=== PATIENT | female | born 1955 | race Two or more races ===

== ENCOUNTER 2019-04-05 15:44 | Inpatient (IN) | payer MEDICARE, MEDICAID ==
[~2019-04-05] VITALS: Ht 167.6 cm; Wt 76.9 kg
[2019-04-05 17:39] VITALS: BP 153/75
[2019-04-05] MEDS ORDERED: CHLO15MO2 PO (18:47)
[2019-04-05] MEDS ORDERED: POLY17PO5 PO (18:47)
[2019-04-05] MEDS ORDERED: LEVO100T5 PO (18:47)
[2019-04-05] MEDS ORDERED: FENO145T30 PO (18:47)
[2019-04-05] MEDS ORDERED: ACET500T68 PO (18:47)
[2019-04-05] MEDS ORDERED: OMEG-33 PO (18:47)
[2019-04-05] MEDS ORDERED: MULT1TAB57 PO (18:47)
[2019-04-05] MEDS ORDERED: BENZ0.5T32 PO (18:47)
[2019-04-05] MEDS ORDERED: CETI10TA16 PO (18:47)
[2019-04-05] MEDS ORDERED: RANI150T2 PO (18:47)
[2019-04-05] MEDS ORDERED: ASPI-630 PO (18:47)
[2019-04-05] MEDS ORDERED: METHYL SALICYLATE/MENTHOL TOPICAL OINTMENT 57GM TUBE. TP PRN (20:45)
[2019-04-05] MEDS ORDERED: MAGNESIUM HYDROXIDE 2,400 MG/30 ML ORAL.SUSP. PO PRN (20:45)
[2019-04-05] MEDS ORDERED: ACETAMINOPHEN 325 MG TABLET PO PRN (20:45)
[2019-04-05] MEDS ORDERED: MAG HYDROX/AL HYDROX/SIMETH 30 ML ORAL.SUSP PO PRN (20:45)
[2019-04-05] MEDS: LORazepam 1 MG TABLET PO SCH (21:13)
[2019-04-05] MEDS: GABAPENTIN 300 MG CAPSULE. PO SCH (21:13)
[2019-04-05] MEDS: HALOPERIDOL 5 MG TABLET PO SCH (21:13)
--- NOTE | 2019-04-05 22:01 | PDOC ---
Exam Note: Zac Note: Please also refer to the separate dictated note~for this date of service dictated separately. Discussed the patient with Nursing staff reviewed the chart.~Reviewed interim history and current functioning. Reviewed vital signs,~Labs/ Radiology~and current medications noted below. Continue current treatment with the changes noted in the dictated addendum note Assessment: Vital Signs/I&O: Vital Signs Date Time Temp Pulse Resp B/P (MAP) Pulse Ox O2 Delivery O2 Flow Rate FiO2 04/05/19 17:39 96.7 53 20 153/75 (101) 95 Current Medications: Meds: Current Medications Medications (Trade) Dose Ordered Sig/Rom Route PRN Reason Start Time Stop Time Status Last Admin Dose Admin Lorazepam (Ativan) 1 mg BID PO 04/05/19 20:00 04/05/19 21:13 Gabapentin (Neurontin) 300 mg BID PO 04/05/19 20:00 04/05/19 21:13 Haloperidol (Haldol) 5 mg BID PO 04/05/19 20:00 04/05/19 21:13 I have reviewed the current psychotropics carefully including drug interactions. Risk benefit ratio favors no change other than as noted in my dictated progress note. STACY BUNDY MD Apr 05, 2019 22:01
[2019-04-05] MEDS ORDERED: HALO2TAB PO (22:54)
[2019-04-05] MEDS ORDERED: NYST15PO9 TP (22:58)
[2019-04-06 05:44] VITALS: BP 103/66
[2019-04-06] MEDS: LEVOTHYROXINE 100 MCG TABLET PO SCH (06:10)
[2019-04-06] MEDS: FAMOTIDINE 20 MG TABLET PO SCH (06:11)
[2019-04-06 07:26] LABS: ALBUMIN 3.5 g/dL (3.4-5.0); ALBUMIN/GLOBULIN RATIO 1.1 (1.0-1.7); CALCIUM 9.7 mg/dL (8.5-10.1); GFR 56.2; POTASSIUM 3.8 mmol/L (3.5-5.1); TOTAL BILIRUBIN 0.5 mg/dL (0.2-1.0); TOTAL PROTEIN 6.8 g/dL (6.4-8.2)
[2019-04-06 07:31] LABS: BASO % 0 % (0-3); EOS % 0 % (0-3); HEMATOCRIT 37.6 % (36.0-47.0); HEMOGLOBIN 12.6 g/dL (12.0-15.5); LYMPH # 1.7 x10^3/uL (1.0-4.8); LYMPH % 22 % (24-48); MEAN CORPUSCULAR HEMOGLOBIN 33 pg (25-35); MEAN CORPUSCULAR HGB CONC 33 g/dL (31-37); MEAN CORPUSCULAR VOLUME 99 fL (79-100); MONO # 0.8 x10^3/uL (0.0-1.1); MONO % 11 % (0-9); NEUT % 67 % (31-73); PLATELET COUNT 336 x10^3/uL (140-400); RED BLOOD COUNT 3.81 x10^6/uL (3.50-5.40); RED CELL DISTRIBUTION WIDTH 13.8 % (11.5-14.5); WHITE BLOOD COUNT 7.5 x10^3/uL (4.0-11.0)
[2019-04-06] MEDS: POLYETHYLENE GLYCOL 3350 17 GM PACKET. PO SCH (08:27)
[2019-04-06] MEDS: FENOFIBRATE NANOCRYSTALLIZED 145 MG TABLET PO SCH (08:28)
[2019-04-06] MEDS: CETIRIZINE HCL 10 MG TABLET PO SCH (08:28)
[2019-04-06] MEDS: MULTIVITAMIN with MINERAL TABLET. PO SCH (08:28)
[2019-04-06] MEDS: LORazepam 1 MG TABLET PO SCH ×2 (08:28→20:23)
[2019-04-06] MEDS: BENZTROPINE MESYLATE 0.5 MG TABLET PO SCH ×2 (08:28→20:23)
[2019-04-06] MEDS: CHLORHEXIDINE 0.12% 15 ML MOUTHWASH. SWSP SCH ×3 (08:28→21:06)
[2019-04-06] MEDS: OMEGA-3 FATTY ACIDS/FISH OIL 1,000 MG CAPSULE. PO SCH (08:28)
[2019-04-06] MEDS: GABAPENTIN 300 MG CAPSULE. PO SCH ×2 (08:29→20:23)
[2019-04-06] MEDS: ASPIRIN 81 MG TAB.CHEW PO SCH (08:31)
[2019-04-06] MEDS: HALOPERIDOL 5 MG TABLET PO SCH ×2 (08:42→20:23)
--- NOTE | 2019-04-06 10:12 | HP ---
ADMIT DATE: 04/05/2019 ADMISSION HISTORY/EVALUATION This late entry 04/05/2019 covers elements not covered in my initial note 04/05/2019. The patient was seen individually evening of 04/05/2019. Discussed with nursing staff, reviewed the chart. Also discussed with Sandy Cuevas graphics coordinator earlier in the day after we got a referral from the [facility] where the patient had been for some time. She was referred there from her nursing facility, which is an independent supported living facility and brought that on the consent of her public childcare center administrator guardian, Francisco Parada on account of marked insomnia, significant mood lability, screaming, tearing up the carpet, falling into the jackson, slamming doors, hitting herself, throwing items at others. All of this had been worsening for about 2 months. She was running out into the street, pulling out her hair and has had a significant physical decline. She has failed outpatient psychiatric interventions for her psychotic disorder, questionable schizophrenia, mental retardation, Alzheimer dementia with delusion, depression. Behaviors have been deemed dangerous, unmanageable at the facility, independent living and referred to the ER and then to us for inpatient psychiatric stabilization. CHIEF COMPLAINT: "No." HISTORY OF PRESENT ILLNESS: The patient has a history of moderate MR, but recent onset of Alzheimer's dementia, has been noted above. She has been increasingly paranoid, angry, irritable, labile in her mood, depressed, unmanageable, aggressive, and disruptive. She has had sleep and appetite changes. No clear history of bipolar disorder, suicidal or homicidal ideation except running out into the streets, pulling her hair and other behaviors have been quite dangerous, unmanageable. PAST PSYCHIATRIC HISTORY: As above. She has failed outpatient psychiatric interventions at [facility]. MEDICAL HISTORY: Positive for moderate MR, hypothyroidism. ACCU-CHEKS: Nil. CODE STATUS: Full code. DIET: Regular. Takes medications whole, ambulates in wheelchair with 1 person assist. CURRENT PSYCHOTROPICS: Ativan 1 mg b.i.d., Neurontin 300 mg b.i.d., Haldol 5 mg b.i.d., Cogentin 0.5 mg b.i.d., Haldol 2 mg q.i.d. p.r.n. psychosis, agitation. FAMILY HISTORY: Noncontributory. SOCIAL HISTORY: Public childcare center administrator, Francisco Parada is her guardian. No alcohol or drug abuse, physical, sexual or elder abuse history is noted. She is not known to be a perpetrator. REACTION TO HOSPITALIZATION: The patient oblivious of this. ASSETS: Supportive living at the above facility and support from the public childcare center administrator. MENTAL STATUS EXAMINATION: The patient was seen individually evening of 04/05/2019 shortly after she arrived on the unit. She is oriented to herself. Speech is often responses monosyllabic. Insight, judgment, recent and remote memory, attention, concentration, fund of knowledge poor, consistent with her diagnoses. IMPRESSION: Major neurocognitive disorder, possibly Alzheimer's with delusion, depression, behavioral disturbance, intellectual disability, moderate. Impulse control disorder; anxiety disorder, unspecified; psychotic disorder, unspecified. Rest unchanged from above. PLAN: Admit to geropsychiatry unit at [facility]. I will see the patient daily individually from a psychiatric standpoint. Medical followup with Dr. Berman. We will continue the patient on her current psychotropics. Observe baseline, then adjust as clinically indicated. MAN Phil BUNDY MD DR: MARGARITO/carolyn JOB#: [id number] / [id number]
[2019-04-06 12:14] LABS: AMORPHOUS SEDIMENT,UR PRESENT /HPF; BACTERIA,URINE 0 /HPF (0-FEW); BILIRUBIN,URINE NEG (NEG); CLARITY,URINE HAZY; COLOR,URINE YELLOW; GLUCOSE,URINE NEG (NEG); NITRITE,URINE NEG (NEG); RBC,URINE 0 /HPF (0-2); SQUAMOUS EPITHELIAL CELL,UR OCC /LPF; UROBILINOGEN,URINE 0.2 mg/dL (0.2 mg/dL); WBC,URINE RARE /HPF (0-4)
[2019-04-06 12:15] LABS: HYALINE CASTS, URINE OCC /HPF
[2019-04-06 15:54] VITALS: BP 150/64
[2019-04-06 16:16] LABS: THYROID STIM HORMONE (TSH) 1.98 uIU/mL (0.358-3.740)
--- NOTE | 2019-04-06 17:12 | RAD ---
CT HEAD WO CONTRAST Indication: Change in mental status Exposure: One or more of the following individualized dose reduction techniques were utilized for this examination: 1. Automated exposure control 2. Adjustment of the mA and/or kV according to patient size 3. Use of iterative reconstruction technique. Technique: Standard imaging without intravenous contrast. Comparison: None Findings: No acute intracranial hemorrhage, mass effect, midline shift or abnormal extra-axial fluid collection. Mild prominence of ventricles and sulci compatible with mild atrophy. Mild low-density in the white matter bilaterally, a nonspecific finding, but which is commonly due to chronic small vessel ischemic disease in a patient of this age. The orbits appear unremarkable. No significant scalp swelling. Visualized sinuses are clear. No evidence of acute skull abnormality. IMPRESSION: No evidence of acute intracranial hemorrhage. Electronically signed by: Bayron Pacheco MD (04/06/2019 5:08 PM) [facility]
[2019-04-06] MEDS: DIVALPROEX ER 500 MG TAB.ER.24H PO SCH (20:23)
--- NOTE | 2019-04-06 22:07 | PDOC ---
Exam Note: Zac Note: Please also refer to the separate dictated note~for this date of service dictated separately.~Patient seen individually. Discussed the patient with Nursing staff reviewed the chart.~Reviewed interim history and current functioning. Reviewed vital signs,~Labs/ Radiology~and current medications noted below. Continue current treatment with the changes noted in the dictated addendum note Assessment: Vital Signs/I&O: Vital Signs Date Time Temp Pulse Resp B/P (MAP) Pulse Ox O2 Delivery O2 Flow Rate FiO2 04/06/19 15:54 97.4 77 18 150/64 (92) 98 I & O 04/05/19 04/05/19 04/06/19 15:00 23:00 07:00 Intake Total 480 ml Balance 480 ml Labs: Laboratory Tests Test 04/06/19 06:26 04/06/19 11:30 White Blood Count 7.5 x10^3/uL (4.0-11.0) Red Blood Count 3.81 x10^6/uL (3.50-5.40) Hemoglobin 12.6 g/dL (12.0-15.5) Hematocrit 37.6 % (36.0-47.0) Mean Corpuscular Volume 99 fL (79-100) Mean Corpuscular Hemoglobin 33 pg (25-35) Mean Corpuscular Hemoglobin Concent 33 g/dL (31-37) Red Cell Distribution Width 13.8 % (11.5-14.5) Platelet Count 336 x10^3/uL (140-400) Neutrophils (%) (Auto) 67 % (31-73) Lymphocytes (%) (Auto) 22 % (24-48) L Monocytes (%) (Auto) 11 % (0-9) H Eosinophils (%) (Auto) 0 % (0-3) Basophils (%) (Auto) 0 % (0-3) Neutrophils # (Auto) 5.0 x10^3uL (1.8-7.7) Lymphocytes # (Auto) 1.7 x10^3/uL (1.0-4.8) Monocytes # (Auto) 0.8 x10^3/uL (0.0-1.1) Eosinophils # (Auto) 0.0 x10^3/uL (0.0-0.7) Basophils # (Auto) 0.0 x10^3/uL (0.0-0.2) Sodium Level 141 mmol/L (136-145) Potassium Level 3.8 mmol/L (3.5-5.1) Chloride Level 104 mmol/L (98-107) Carbon Dioxide Level 27 mmol/L (21-32) Anion Gap 10 (6-14) Blood Urea Nitrogen 21 mg/dL (7-20) H Creatinine 1.0 mg/dL (0.6-1.0) Estimated GFR (Cockcroft-Gault) 56.2 BUN/Creatinine Ratio 21 (6-20) H Glucose Level 107 mg/dL (70-99) H Calcium Level 9.7 mg/dL (8.5-10.1) Magnesium Level 2.0 mg/dL (1.8-2.4) Iron Level 54 ug/dL (50-170) Total Iron Binding Capacity 408 ug/dL (250-450) Iron Saturation 13 % (15-34) L Total Bilirubin 0.5 mg/dL (0.2-1.0) Aspartate Amino Transferase (AST) 41 U/L (15-37) H Alanine Aminotransferase (ALT) 35 U/L (14-59) Alkaline Phosphatase 101 U/L (46-116) Total Protein 6.8 g/dL (6.4-8.2) Albumin 3.5 g/dL (3.4-5.0) Albumin/Globulin Ratio 1.1 (1.0-1.7) Triglycerides Level 72 mg/dL (0-150) Cholesterol Level 188 mg/dL (0-200) LDL Cholesterol, Calculated 78 mg/dL (0-100) VLDL Cholesterol, Calculated 14 mg/dL (0-40) Non-HDL Cholesterol Calculated 92 mg/dL (0-129) HDL Cholesterol 96 mg/dL (40-60) H Cholesterol/HDL Ratio 1.0 25-Hydroxy Vitamin D Total 28.8 ng/mL (30-100) L Thyroid Stimulating Hormone (TSH) 1.980 uIU/mL (0.358-3.740) Thyroxine (T4) 8.0 ug/dL (4.5-12.0) Total Triiodothyronine (TT3) 87 ng/dL (71-180) Treponema pallidum Antibody Nonreactive (Nonreactive) Urine Collection Type Unknown Urine Color Yellow Urine Clarity Hazy Urine pH 5.5 Urine Specific Greene 1.020 Urine Protein Neg (NEG-TRACE) Urine Glucose (UA) Neg mg/dL (NEG) Urine Ketones (Stick) Neg mg/dL (NEG) Urine Blood Neg (NEG) Urine Nitrite Neg (NEG) Urine Bilirubin Neg (NEG) Urine Urobilinogen Dipstick 0.2 mg/dL (0.2 mg/dL) Urine Leukocyte Esterase Neg (NEG) Urine RBC 0 /HPF (0-2) Urine WBC Rare /HPF (0-4) Urine Squamous Epithelial Cells Occ /LPF Urine Amorphous Sediment Present /HPF Urine Bacteria 0 /HPF (0-FEW) Urine Hyaline Casts Occ /HPF Urine Mucus Mod /LPF Current Medications: Meds: Current Medications Medications (Trade) Dose Ordered Sig/Rom Route PRN Reason Start Time Stop Time Status Last Admin Dose Admin Aspirin (Children'S Aspirin) 81 mg DAILY PO 04/06/19 09:00 04/06/19 08:32 Cetirizine HCl (ZyrTEC) 10 mg DAILY PO 04/06/19 09:00 04/06/19 08:32 Fenofibrate (Tricor) 145 mg DAILY PO 04/06/19 09:00 04/06/19 08:32 Polyethylene Glycol (miraLAX) 17 gm DAILY PO 04/06/19 09:00 04/06/19 08:32 Multivitamins/ Calcium (Thera-M Plus) 1 tab DAILY PO 04/06/19 09:00 04/06/19 08:32 Fish Oil (Fish Oil) 1,000 mg DAILY PO 04/06/19 09:00 04/06/19 08:32 Chlorhexidine Gluconate (Peridex) 15 ml TID SWS 04/06/19 09:00 04/06/19 21:06 Benztropine Mesylate (Cogentin) 0.5 mg BID PO 04/06/19 09:00 04/06/19 20:23 Levothyroxine Sodium (Synthroid) 100 mcg DAILY06 PO 04/06/19 06:00 04/06/19 06:11 Famotidine (Pepcid) 20 mg DAILY07 PO 04/06/19 07:00 04/06/19 06:11 Divalproex Sodium (Depakote Er) 500 mg QHS PO 04/06/19 21:00 04/06/19 20:23 I have reviewed the current psychotropics carefully including drug interactions. Risk benefit ratio favors no change other than as noted in my dictated progress note. Diagnosis: Problems: (1) Impulse control disorder (2) Anxiety disorder (3) Psychotic disorder (4) Dementia in Alzheimer's disease with delusions (5) Dementia in Alzheimer's disease with depression (6) Major neurocognitive disorder STACY BUNDY MD Apr 06, 2019 22:07
[2019-04-06 23:07] LABS: HEMOGLOBIN A1C 5.2 % (4.8-5.6)
[2019-04-07] MEDS: HALOPERIDOL 2 MG TABLET PO PRN (00:32)
[2019-04-07] MEDS: LEVOTHYROXINE 100 MCG TABLET PO SCH (05:56)
[2019-04-07] MEDS: FAMOTIDINE 20 MG TABLET PO SCH (05:56)
[2019-04-07 06:06] VITALS: BP 112/60
[2019-04-07] MEDS: OMEGA-3 FATTY ACIDS/FISH OIL 1,000 MG CAPSULE. PO SCH (08:47)
[2019-04-07] MEDS: FENOFIBRATE NANOCRYSTALLIZED 145 MG TABLET PO SCH (08:48)
[2019-04-07] MEDS: BENZTROPINE MESYLATE 0.5 MG TABLET PO SCH ×2 (08:48→21:16)
[2019-04-07] MEDS: MULTIVITAMIN with MINERAL TABLET. PO SCH (08:48)
[2019-04-07] MEDS: CETIRIZINE HCL 10 MG TABLET PO SCH (08:48)
[2019-04-07] MEDS: POLYETHYLENE GLYCOL 3350 17 GM PACKET. PO SCH (08:48)
[2019-04-07] MEDS: CHLORHEXIDINE 0.12% 15 ML MOUTHWASH. SWSP SCH ×3 (08:48→21:16)
[2019-04-07] MEDS: ASPIRIN 81 MG TAB.CHEW PO SCH (08:48)
[2019-04-07] MEDS: HALOPERIDOL 5 MG TABLET PO SCH ×2 (08:48→21:16)
[2019-04-07] MEDS: LORazepam 1 MG TABLET PO SCH ×2 (08:50→21:16)
[2019-04-07] MEDS: GABAPENTIN 300 MG CAPSULE. PO SCH ×2 (08:50→21:16)
--- NOTE | 2019-04-07 08:53 | CONS ---
DATE OF CONSULTATION: 04/06/2019 REASON FOR CONSULTATION: Medical management. HISTORY OF PRESENT ILLNESS: The patient is a 63-year-old female patient who was referred from [facility], where the patient had been for some time. She was referred there from her nursing facility, which is an independent supported living facility and brought that on the consent of her public health data administrator guardian on account of marked insomnia and significant mood lability, screaming, tearing up the carpet, falling into the jackson, slamming doors, hitting herself, throwing items at others, all this had been worsening for about 2 months. She was running out into the street, pulling out her hair, has had a significant physical decline. She had failed outpatient psychiatric intervention for her psychotic disorder with questionable schizophrenia, mental retardation, Alzheimer dementia with delusion, depression. Her behaviors have been deemed dangerous, unmanageable at the facility, independent living and referred to inpatient psychiatric stabilization. PAST PSYCHIATRIC HISTORY: Significant for moderate mental retardation, recent onset Alzheimer dementia. She has been increasingly paranoid, angry, irritable, labile in her mood, depressed, unmanageable, aggressive and disruptive. PAST MEDICAL HISTORY: Significant for moderate mental retardation, hypothyroidism as well as gastroesophageal reflux disease, and hyperlipidemia. ALLERGIES: She is allergic to CIPROFLOXACIN AND METRONIDAZOLE. MEDICATIONS: She is currently on following medications: She is on cetirizine 10 mg once a day, fenofibrate noncrystalized 145 mg once a day, omega-3 fatty acid 1000 mg 3 times a day, aspirin 81 mg once a day, acetaminophen 1000 mg every 8 hours, haloperidol 2 mg 4 times a day, benztropine mesylate 0.5 mg twice a day, chlorhexidine gluconate or Peridex 15 mL p.o. t.i.d., polyethylene glycol 17 grams daily p.r.n. for constipation, ranitidine 150 mg once a day, levothyroxine sodium 100 mcg once a day, nystatin powder applied topically twice a day, multivitamin with mineral 1 tablet once a day. FAMILY HISTORY: Noncontributory. SOCIAL HISTORY: She is a resident at an Assisted Living Facility. Her public health data administrator is her guardian. She does not smoke, drink alcohol or use any recreational drugs. PHYSICAL EXAMINATION: GENERAL: On examining her, she was sitting comfortably in her chair, eating her supper, in no apparent distress. No pallor, jaundice, cyanosis or thyromegaly. No jugular venous distention. No lower limb edema. VITAL SIGNS: Her heart rate was 77, blood pressure 150/64, temperature was 97.4, respiratory rate was 18 and oxygen saturation was 98%. HEAD, EYES, EARS, NOSE, AND THROAT: Showed normocephalic, atraumatic. NECK: Supple. HEART: Showed normal first and second heart sounds. No gallop, rub or murmur. CHEST: Clear to auscultation. No crepitation or rhonchi. ABDOMEN: Distended, soft, nontender. NEUROLOGIC: She is awake, alert, responding appropriately. All cranial nerves intact. EXTREMITIES: She moves upper extremities without difficulty. SKIN: Examination of the skin showed she had multiple bruises on the right shoulder and left forearm that were present on admission. LABORATORY DATA: Her lab work showed her white cell count was 7500, hemoglobin 12.6, hematocrit 37.6, MCV 99 and platelet count 336,000 with normal manual differential. Her chemistry showed a serum sodium 141, potassium 3.8, chloride 104, bicarbonate 27, anion gap of 10, BUN 21, creatinine 1, estimated GFR was 56 mL per minute. Her glucose 107, calcium was 9.7, magnesium 2. Serum iron 54, TIBC was 408 and iron saturation was 13%. Her total bilirubin, AST, ALT, alkaline phosphatase were normal. Total protein was 6.8, albumin 3.5. Serum triglycerides were 72, total cholesterol 188, the LDL cholesterol 78, VLDL was 14, HDL cholesterol was 96, and the ratio was 1. Her TSH was normal at 1.980. Her urinalysis showed the urine was yellow, hazy with a pH of 5.5, specific gravity of 1.020. The urine was negative for protein, glucose, ketones, blood, nitrite and leukocyte esterase. There are no rbc's, no wbc's. IMAGING DATA: CT scan of the head showed that there is no intracranial hemorrhage, mass effect, midline shift or abnormal extraaxial fluid collection. Mild prominence of ventricles and sulci compatible with mild atrophy, mild low density in the white matter bilaterally, a nonspecific finding, but which is commonly due to chronic small vessel ischemic disease in a patient at this age. The orbits appear unremarkable. No significant scalp swelling. Visualized sinuses are clear. No evidence of acute skull abnormality. ASSESSMENT AND PLAN: All in all, this is a 63-year-old female patient with mild mental retardation. Medically, she seemed to be stable. All her vital signs are within acceptable range. All her lab works including her TSH, kidney function and blood count are all within acceptable range. I will follow all her lab works that are still pending at the time of this dictation and make any necessary recommendation. Thank you, Dr. Schofield for allowing me to participate in the care of this patient. PAIGE RANDHAWA MD DR: ALEX/carolyn JOB#: [id number] / [id number]
[2019-04-07 16:51] VITALS: BP 144/80
[2019-04-07] MEDS ORDERED: FLU VAX QS 2019-20 (36MOS+)/PF 0.5 ML SYRINGE. VAX IM ONE (20:00)
[2019-04-07] MEDS: DIVALPROEX ER 500 MG TAB.ER.24H PO SCH (21:16)
[2019-04-07] MEDS: MIRTAZAPINE 7.5 MG TABLET. PO SCH (21:17)
--- NOTE | 2019-04-07 21:44 | PDOC ---
Exam Note: Zac Note: Please also refer to the separate dictated note~for this date of service dictated separately.~Patient seen individually. Discussed the patient with Nursing staff reviewed the chart.~Reviewed interim history and current functioning. Reviewed vital signs,~Labs/ Radiology~and current medications noted below. Continue current treatment with the changes noted in the dictated addendum note Assessment: Vital Signs/I&O: Vital Signs Date Time Temp Pulse Resp B/P (MAP) Pulse Ox O2 Delivery O2 Flow Rate FiO2 04/07/19 16:51 97.0 83 18 144/80 (101) 95 I & O 04/06/19 04/06/19 04/07/19 14:59 22:59 06:59 Intake Total 600 ml 240 ml 120 ml Balance 600 ml 240 ml 120 ml Current Medications: Meds: Current Medications Medications (Trade) Dose Ordered Sig/Rom Route PRN Reason Start Time Stop Time Status Last Admin Dose Admin Haloperidol (Haldol) 2 mg PRN QID PRN PO HALLUCINATIONS 04/07/19 00:15 04/07/19 00:32 Mirtazapine (Remeron) 7.5 mg QHS PO 04/07/19 21:00 04/07/19 21:17 I have reviewed the current psychotropics carefully including drug interactions. Risk benefit ratio favors no change other than as noted in my dictated progress note. Diagnosis: Problems: (1) Anxiety disorder (2) Impulse control disorder (3) Psychotic disorder (4) Dementia in Alzheimer's disease with depression (5) Dementia in Alzheimer's disease with delusions (6) Major neurocognitive disorder STACY BUNDY MD Apr 07, 2019 21:44
[2019-04-08] MEDS: LEVOTHYROXINE 100 MCG TABLET PO SCH (05:24)
[2019-04-08 06:02] VITALS: BP 109/69
[2019-04-08] MEDS: FAMOTIDINE 20 MG TABLET PO SCH (06:13)
[2019-04-08] MEDS: CETIRIZINE HCL 10 MG TABLET PO SCH (07:47)
[2019-04-08] MEDS: FENOFIBRATE NANOCRYSTALLIZED 145 MG TABLET PO SCH (07:47)
[2019-04-08] MEDS: BENZTROPINE MESYLATE 0.5 MG TABLET PO SCH ×2 (07:47→19:36)
[2019-04-08] MEDS: OMEGA-3 FATTY ACIDS/FISH OIL 1,000 MG CAPSULE. PO SCH (07:47)
[2019-04-08] MEDS: MULTIVITAMIN with MINERAL TABLET. PO SCH (07:47)
[2019-04-08] MEDS: CHLORHEXIDINE 0.12% 15 ML MOUTHWASH. SWSP SCH ×3 (07:48→19:37)
[2019-04-08] MEDS: HALOPERIDOL 5 MG TABLET PO SCH (07:48)
[2019-04-08] MEDS: ASPIRIN 81 MG TAB.CHEW PO SCH (07:48)
[2019-04-08] MEDS: POLYETHYLENE GLYCOL 3350 17 GM PACKET. PO SCH (07:48)
[2019-04-08] MEDS: GABAPENTIN 300 MG CAPSULE. PO SCH ×2 (07:50→19:37)
[2019-04-08] MEDS: LORazepam 1 MG TABLET PO SCH ×2 (07:50→19:37)
[2019-04-08] MEDS: HALOPERIDOL 2 MG TABLET PO PRN ×2 (09:14→13:25)
[2019-04-08] MEDS: ACETAMINOPHEN 500 MG TABLET PO PRN (13:25)
[2019-04-08 17:12] VITALS: BP 112/71
[2019-04-08] MEDS: MIRTAZAPINE 7.5 MG TABLET. PO SCH (19:36)
[2019-04-08] MEDS: DIVALPROEX ER 500 MG TAB.ER.24H PO SCH (19:37)
[2019-04-08] MEDS: risperiDONE 0.5 MG TABLET. PO SCH (19:39)
--- NOTE | 2019-04-08 22:05 | PDOC ---
Exam Note: Zac Note: Please also refer to the separate dictated note~for this date of service dictated separately.~Patient seen individually. Discussed the patient with Nursing staff reviewed the chart.~Reviewed interim history and current functioning. Reviewed vital signs,~Labs/ Radiology~and current medications noted below. Continue current treatment with the changes noted in the dictated addendum note Assessment: Vital Signs/I&O: Vital Signs Date Time Temp Pulse Resp B/P (MAP) Pulse Ox O2 Delivery O2 Flow Rate FiO2 04/08/19 17:12 99.0 87 16 112/71 (85) 97 I & O 04/07/19 04/07/19 04/08/19 15:00 23:00 07:00 Intake Total 840 ml 240 ml 120 ml Balance 840 ml 240 ml 120 ml Current Medications: Meds: Current Medications Medications (Trade) Dose Ordered Sig/Rom Route PRN Reason Start Time Stop Time Status Last Admin Dose Admin Risperidone (RisperDAL) 0.5 mg BID PO 04/08/19 21:00 04/08/19 19:39 I have reviewed the current psychotropics carefully including drug interactions. Risk benefit ratio favors no change other than as noted in my dictated progress note. Diagnosis: Problems: (1) Anxiety disorder (2) Impulse control disorder (3) Psychotic disorder (4) Dementia in Alzheimer's disease with depression (5) Dementia in Alzheimer's disease with delusions (6) Major neurocognitive disorder STACY BUNDY MD Apr 08, 2019 22:05
[2019-04-09] MEDS: LEVOTHYROXINE 100 MCG TABLET PO SCH (05:46)
[2019-04-09] MEDS: FAMOTIDINE 20 MG TABLET PO SCH (05:46)
[2019-04-09 05:47] VITALS: BP 100/60
[2019-04-09] MEDS: CHLORHEXIDINE 0.12% 15 ML MOUTHWASH. SWSP SCH ×3 (08:48→19:39)
[2019-04-09] MEDS: ASPIRIN 81 MG TAB.CHEW PO SCH (08:48)
[2019-04-09] MEDS: POLYETHYLENE GLYCOL 3350 17 GM PACKET. PO SCH (08:48)
[2019-04-09] MEDS: OMEGA-3 FATTY ACIDS/FISH OIL 1,000 MG CAPSULE. PO SCH (08:48)
[2019-04-09] MEDS: FENOFIBRATE NANOCRYSTALLIZED 145 MG TABLET PO SCH (08:48)
[2019-04-09] MEDS: MULTIVITAMIN with MINERAL TABLET. PO SCH (08:48)
[2019-04-09] MEDS: risperiDONE 0.5 MG TABLET. PO SCH ×2 (08:48→19:38)
[2019-04-09] MEDS: CETIRIZINE HCL 10 MG TABLET PO SCH (08:49)
[2019-04-09] MEDS: BENZTROPINE MESYLATE 0.5 MG TABLET PO SCH ×2 (08:49→19:38)
[2019-04-09] MEDS: GABAPENTIN 300 MG CAPSULE. PO SCH ×2 (08:49→19:38)
[2019-04-09] MEDS: LORazepam 1 MG TABLET PO SCH ×2 (08:50→19:38)
[2019-04-09 09:59] LABS: BASO % 0 % (0-3); EOS % 0 % (0-3); HEMATOCRIT 36.1 % (36.0-47.0); HEMOGLOBIN 11.8 g/dL (12.0-15.5); LYMPH # 0.7 x10^3/uL (1.0-4.8); LYMPH % 11 % (24-48); MEAN CORPUSCULAR HEMOGLOBIN 33 pg (25-35); MEAN CORPUSCULAR HGB CONC 33 g/dL (31-37); MEAN CORPUSCULAR VOLUME 100 fL (79-100); MONO # 0.6 x10^3/uL (0.0-1.1); MONO % 9 % (0-9); NEUT # 5.4 x10^3uL (1.8-7.7); NEUT % 81 % (31-73); PLATELET COUNT 311 x10^3/uL (140-400); RED BLOOD COUNT 3.61 x10^6/uL (3.50-5.40); RED CELL DISTRIBUTION WIDTH 14.3 % (11.5-14.5); WHITE BLOOD COUNT 6.6 x10^3/uL (4.0-11.0)
--- NOTE | 2019-04-09 10:12 | PN ---
DATE: 04/06/2019 PSYCHIATRIC PROGRESS NOTE This late entry 04/06/2019 covers elements not covered in my initial note. SUBJECTIVE: I met with the patient evening of 04/06/2019 staffed at a treatment team meeting with the entire team earlier in the day. Reviewed her history at length. She was walking out of the facility, trying to get into cars, disorganized, anxious, restless, confused and psychotic. Behaviors have been worsening for about 5 months, was very calm, compliant prior to that. She retired from her job working in [employer] and this happened last year and behaviors have gradually worsened. Sleeping 7-8 hours. Appetite 50-75%. She is anxious. Previous evening, she flipped her tray, agitated, aggressive, paranoid, had to be in the quiet hallway on the west side. REVIEW OF SYSTEMS: Ambulation impaired, in wheelchair. No CV, , pulmonary, eye, ENT system symptoms on review. Reliability poor. MENTAL STATUS EXAM: Oriented to herself. Insight, judgment, recent and remote memory, attention, concentration, fund of knowledge poor, consistent with her diagnosis mentioned in my initial note. PLAN: No change from initial note, but given the marked impulse control, behavioral dyscontrol, we will start Depakote ER 500 mg at bedtime. Check CBC, CMP, valproic acid level in [address] head if not done previously. Rest unchanged. MAN Phil BUNDY MD DR: MARGARITO/carolyn JOB#: [id number] / [id number]
[2019-04-09 10:18] LABS: ALBUMIN 3.2 g/dL (3.4-5.0); ALBUMIN/GLOBULIN RATIO 0.9 (1.0-1.7); ALK PHOS 111 U/L (46-116); ALT (SGPT) 30 U/L (14-59); ANION GAP 7 (6-14); AST (SGOT) 35 U/L (15-37); BLOOD UREA NITROGEN 27 mg/dL (7-20); BUN/CREATININE RATIO 25 (6-20); CALCIUM 9.3 mg/dL (8.5-10.1); CARBON DIOXIDE 30 mmol/L (21-32); CHLORIDE 105 mmol/L (98-107); CREATININE 1.1 mg/dL (0.6-1.0); GFR 50.3; GLUCOSE 108 mg/dL (70-99); POTASSIUM 4.1 mmol/L (3.5-5.1); SODIUM 142 mmol/L (136-145); TOTAL BILIRUBIN 0.3 mg/dL (0.2-1.0); TOTAL PROTEIN 6.7 g/dL (6.4-8.2)
[2019-04-09 10:19] LABS: VAL ACID 36 mcg/mL (50-100)
[2019-04-09] MEDS: MUPIROCIN 2% TOPICAL OINTMENT 22GM TUBE. TP SCH (14:29)
[2019-04-09 16:00] VITALS: BP 126/79
[2019-04-09 16:01] VITALS: BP 126/79
[2019-04-09] MEDS: DIVALPROEX ER 500 MG TAB.ER.24H PO SCH (19:38)
[2019-04-09] MEDS: MIRTAZAPINE 7.5 MG TABLET. PO SCH (19:38)
--- NOTE | 2019-04-09 19:56 | PN ---
DATE: 04/07/2019 PSYCHIATRIC PROGRESS NOTE This late entry of 04/07/2019 covers elements not covered in my initial note. SUBJECTIVE: I met with the patient in the evening. The patient slept 5 hours previous night. Overall, she had a good day per nursing report. States she wants to go home, but quite confused, consistent with her diagnosis. REVIEW OF SYSTEMS: Ambulation impaired, in wheelchair. No CV, , pulmonary, eye, ENT system symptoms on review. MENTAL STATUS EXAM: Oriented to herself. Insight, judgment, recent and remote memory, attention, concentration, fund of knowledge poor, consistent with her diagnosis mentioned in my initial note. PLAN: No change from initial note. Maintain scheduled Haldol p.r.n., Haldol, Cogentin, and Depakote. Follow labs level on the Depakote. May need to taper the Ativan, which she is taking 1 mg b.i.d. and Neurontin is 300 mg b.i.d. STACY BUNDY MD DR: MARGARITO/carolyn JOB#: [id number] / [id number]
--- NOTE | 2019-04-09 23:06 | PDOC ---
Exam Note: Zac Note: Please also refer to the separate dictated note~for this date of service dictated separately.~Patient seen individually. Discussed the patient with Nursing staff reviewed the chart.~Reviewed interim history and current functioning. Reviewed vital signs,~Labs/ Radiology~and current medications noted below. Continue current treatment with the changes noted in the dictated addendum note Assessment: Vital Signs/I&O: Vital Signs Date Time Temp Pulse Resp B/P (MAP) Pulse Ox O2 Delivery O2 Flow Rate FiO2 04/09/19 16:01 97.8 77 18 126/79 (95) 98 I & O 04/08/19 04/08/19 04/09/19 15:00 23:00 07:00 Intake Total 480 ml 440 ml Balance 480 ml 440 ml Labs: Laboratory Tests Test 04/09/19 09:18 White Blood Count 6.6 x10^3/uL (4.0-11.0) Red Blood Count 3.61 x10^6/uL (3.50-5.40) Hemoglobin 11.8 g/dL (12.0-15.5) L Hematocrit 36.1 % (36.0-47.0) Mean Corpuscular Volume 100 fL (79-100) Mean Corpuscular Hemoglobin 33 pg (25-35) Mean Corpuscular Hemoglobin Concent 33 g/dL (31-37) Red Cell Distribution Width 14.3 % (11.5-14.5) Platelet Count 311 x10^3/uL (140-400) Neutrophils (%) (Auto) 81 % (31-73) H Lymphocytes (%) (Auto) 11 % (24-48) L Monocytes (%) (Auto) 9 % (0-9) Eosinophils (%) (Auto) 0 % (0-3) Basophils (%) (Auto) 0 % (0-3) Neutrophils # (Auto) 5.4 x10^3uL (1.8-7.7) Lymphocytes # (Auto) 0.7 x10^3/uL (1.0-4.8) L Monocytes # (Auto) 0.6 x10^3/uL (0.0-1.1) Eosinophils # (Auto) 0.0 x10^3/uL (0.0-0.7) Basophils # (Auto) 0.0 x10^3/uL (0.0-0.2) Sodium Level 142 mmol/L (136-145) Potassium Level 4.1 mmol/L (3.5-5.1) Chloride Level 105 mmol/L (98-107) Carbon Dioxide Level 30 mmol/L (21-32) Anion Gap 7 (6-14) Blood Urea Nitrogen 27 mg/dL (7-20) H Creatinine 1.1 mg/dL (0.6-1.0) H Estimated GFR (Cockcroft-Gault) 50.3 BUN/Creatinine Ratio 25 (6-20) H Glucose Level 108 mg/dL (70-99) H Calcium Level 9.3 mg/dL (8.5-10.1) Total Bilirubin 0.3 mg/dL (0.2-1.0) Aspartate Amino Transferase (AST) 35 U/L (15-37) Alanine Aminotransferase (ALT) 30 U/L (14-59) Alkaline Phosphatase 111 U/L (46-116) Total Protein 6.7 g/dL (6.4-8.2) Albumin 3.2 g/dL (3.4-5.0) L Albumin/Globulin Ratio 0.9 (1.0-1.7) L Valproic Acid Level 36 mcg/mL (50-100) L Valproic Acid Last Dose Date 04/08/19 Valproic Acid Last Dose Time 2100 Current Medications: Meds: Current Medications Medications (Trade) Dose Ordered Sig/Rom Route PRN Reason Start Time Stop Time Status Last Admin Dose Admin Mupirocin (Bactroban) 1 errol BID TP 04/09/19 21:00 04/09/19 14:29 I have reviewed the current psychotropics carefully including drug interactions. Risk benefit ratio favors no change other than as noted in my dictated progress note. Diagnosis: Problems: (1) Anxiety disorder (2) Impulse control disorder (3) Psychotic disorder (4) Dementia in Alzheimer's disease with depression (5) Dementia in Alzheimer's disease with delusions (6) Major neurocognitive disorder STACY BUNDY MD Apr 09, 2019 23:06
--- NOTE | 2019-04-10 02:01 | PN ---
DATE: 04/08/2019 PSYCHIATRIC PROGRESS NOTE This late entry 04/08/2019 covers elements not covered in my initial note. SUBJECTIVE: I met with the patient evening of 04/08/2019. The patient slept 8 hours previous night. Per NAVEED Martinez, the patient has had "horrible day." She has been putting herself on the floor, yelling, stripped herself, naked, ripping off her clothes and other things, extremely anxious, restless, agitated with marked mood lability. REVIEW OF SYSTEMS: Ambulation impaired, in wheelchair. No CV, , pulmonary, eye, ENT system symptoms on review. Reliability poor. MENTAL STATUS EXAM: Oriented to herself. Insight, judgment, recent and remote memory, attention, concentration, fund of knowledge poor, consistent with her diagnosis mentioned in my initial note. PLAN: No change from initial note. MAN Phil BUNDY MD DR: MARGARITO/carolyn JOB#: [id number] / [id number]
[2019-04-10] MEDS: LEVOTHYROXINE 100 MCG TABLET PO SCH (05:46)
[2019-04-10] MEDS: FAMOTIDINE 20 MG TABLET PO SCH (05:46)
[2019-04-10 06:28] VITALS: BP 117/79
[2019-04-10] MEDS: risperiDONE 0.5 MG TABLET. PO SCH ×2 (08:28→19:58)
[2019-04-10] MEDS: MULTIVITAMIN with MINERAL TABLET. PO SCH (08:28)
[2019-04-10] MEDS: BENZTROPINE MESYLATE 0.5 MG TABLET PO SCH ×2 (08:28→19:58)
[2019-04-10] MEDS: OMEGA-3 FATTY ACIDS/FISH OIL 1,000 MG CAPSULE. PO SCH (08:28)
[2019-04-10] MEDS: FENOFIBRATE NANOCRYSTALLIZED 145 MG TABLET PO SCH (08:28)
[2019-04-10] MEDS: ASPIRIN 81 MG TAB.CHEW PO SCH (08:29)
[2019-04-10] MEDS: CETIRIZINE HCL 10 MG TABLET PO SCH (08:29)
[2019-04-10] MEDS: LORazepam 1 MG TABLET PO SCH ×2 (08:31→19:57)
[2019-04-10] MEDS: CHLORHEXIDINE 0.12% 15 ML MOUTHWASH. SWSP SCH ×4 (08:31→21:00)
[2019-04-10] MEDS: POLYETHYLENE GLYCOL 3350 17 GM PACKET. PO SCH (08:31)
[2019-04-10] MEDS: GABAPENTIN 300 MG CAPSULE. PO SCH ×2 (08:31→19:58)
[2019-04-10] MEDS: MUPIROCIN 2% TOPICAL OINTMENT 22GM TUBE. TP SCH ×2 (13:21→19:58)
[2019-04-10 15:58] VITALS: BP 102/67
[2019-04-10] MEDS: DIVALPROEX ER 500 MG TAB.ER.24H PO SCH (19:58)
[2019-04-10] MEDS: MIRTAZAPINE 7.5 MG TABLET. PO SCH (19:58)
--- NOTE | 2019-04-10 21:40 | PDOC ---
Exam Note: Zac Note: Please also refer to the separate dictated note~for this date of service dictated separately.~Patient seen individually. Discussed the patient with Nursing staff reviewed the chart.~Reviewed interim history and current functioning. Reviewed vital signs,~Labs/ Radiology~and current medications noted below. Continue current treatment with the changes noted in the dictated addendum note Assessment: Vital Signs/I&O: Vital Signs Date Time Temp Pulse Resp B/P (MAP) Pulse Ox O2 Delivery O2 Flow Rate FiO2 04/10/19 15:58 98.7 71 16 102/67 (79) 96 I & O 04/09/19 04/09/19 04/10/19 15:00 23:00 07:00 Intake Total 840 ml 390 ml Balance 840 ml 390 ml Current Medications: I have reviewed the current psychotropics carefully including drug interactions. Risk benefit ratio favors no change other than as noted in my dictated progress note. Diagnosis: Problems: (1) Anxiety disorder (2) Impulse control disorder (3) Psychotic disorder (4) Dementia in Alzheimer's disease with depression (5) Dementia in Alzheimer's disease with delusions (6) Major neurocognitive disorder STACY BUNDY MD Apr 10, 2019 21:40
[2019-04-11] MEDS: LEVOTHYROXINE 100 MCG TABLET PO SCH (04:58)
[2019-04-11 06:12] VITALS: BP 129/85
[2019-04-11] MEDS: FAMOTIDINE 20 MG TABLET PO SCH (06:21)
[2019-04-11] MEDS: OMEGA-3 FATTY ACIDS/FISH OIL 1,000 MG CAPSULE. PO SCH (07:59)
[2019-04-11] MEDS: FENOFIBRATE NANOCRYSTALLIZED 145 MG TABLET PO SCH (07:59)
[2019-04-11] MEDS: BENZTROPINE MESYLATE 0.5 MG TABLET PO SCH ×2 (08:00→19:11)
[2019-04-11] MEDS: CHLORHEXIDINE 0.12% 15 ML MOUTHWASH. SWSP SCH ×3 (08:00→19:10)
[2019-04-11] MEDS: risperiDONE 0.5 MG TABLET. PO SCH ×2 (08:00→19:10)
[2019-04-11] MEDS: ASPIRIN 81 MG TAB.CHEW PO SCH (08:00)
[2019-04-11] MEDS: MULTIVITAMIN with MINERAL TABLET. PO SCH (08:00)
[2019-04-11] MEDS: CETIRIZINE HCL 10 MG TABLET PO SCH (08:00)
[2019-04-11] MEDS: POLYETHYLENE GLYCOL 3350 17 GM PACKET. PO SCH (08:03)
[2019-04-11] MEDS: GABAPENTIN 300 MG CAPSULE. PO SCH ×2 (08:03→19:10)
[2019-04-11] MEDS: LORazepam 1 MG TABLET PO SCH ×2 (08:03→19:11)
[2019-04-11] MEDS: MUPIROCIN 2% TOPICAL OINTMENT 22GM TUBE. TP SCH ×2 (09:00→21:00)
[2019-04-11 16:12] VITALS: BP 141/84
[2019-04-11] MEDS: DIVALPROEX ER 500 MG TAB.ER.24H PO SCH (19:11)
[2019-04-11] MEDS: MIRTAZAPINE 7.5 MG TABLET. PO SCH (19:11)
[2019-04-11] MEDS: DIVALPROEX ER 250 MG TAB.ER.24H. PO SCH (19:42)
--- NOTE | 2019-04-11 21:43 | PDOC ---
Exam Note: Zac Note: Please also refer to the separate dictated note~for this date of service dictated separately.~Patient seen individually. Discussed the patient with Nursing staff reviewed the chart.~Reviewed interim history and current functioning. Reviewed vital signs,~Labs/ Radiology~and current medications noted below. Continue current treatment with the changes noted in the dictated addendum note Assessment: Vital Signs/I&O: Vital Signs Date Time Temp Pulse Resp B/P (MAP) Pulse Ox O2 Delivery O2 Flow Rate FiO2 04/11/19 16:12 97.3 77 18 141/84 (103) 98 I & O 04/10/19 04/10/19 04/11/19 15:00 23:00 07:00 Intake Total 360 ml 240 ml 240 ml Balance 360 ml 240 ml 240 ml Current Medications: Meds: Current Medications Medications (Trade) Dose Ordered Sig/Rom Route PRN Reason Start Time Stop Time Status Last Admin Dose Admin Divalproex Sodium (Depakote Er) 500 mg QHS PO 04/11/19 21:00 04/11/19 19:14 Divalproex Sodium (Depakote Er) 250 mg QHS PO 04/11/19 21:00 04/11/19 19:42 I have reviewed the current psychotropics carefully including drug interactions. Risk benefit ratio favors no change other than as noted in my dictated progress note. Diagnosis: Problems: (1) Anxiety disorder (2) Impulse control disorder (3) Psychotic disorder (4) Dementia in Alzheimer's disease with depression (5) Dementia in Alzheimer's disease with delusions (6) Major neurocognitive disorder STACY BUNDY MD Apr 11, 2019 21:43
--- NOTE | 2019-04-12 04:10 | PN ---
DATE: 04/10/2019 PSYCHIATRIC PROGRESS NOTE This late entry 04/10/2019 covers the elements not covered in my initial note. SUBJECTIVE: I met with the patient in the evening of 04/10/2019. The patient slept 8-1/2 hours previous night. She slept most of the day. At breakfast time she was screaming, yelling, received Zyprexa p.r.n. with little response. She slept after that. REVIEW OF SYSTEMS: Ambulation impaired, in wheelchair. No CV, , pulmonary, eye, ENT system symptoms on review. Reliability is poor. MENTAL STATUS EXAM: Oriented to herself. Insight, judgment, recent and remote memory, attention, concentration, fund of knowledge poor, consistent with her diagnosis mentioned in my initial note. PLAN: No change from initial note. We will further clarify her premorbid diagnosis of bipolar disorder, but we have it covered in any way with gradually adjusting the Depakote. Maintain rest psychotropics unchanged. MAN Phil BUNDY MD DR: MARGARITO/carolyn JOB#: [id number] / [id number]
--- NOTE | 2019-04-12 04:22 | PN ---
DATE: 04/09/2019 PSYCHIATRIC PROGRESS NOTE This late entry of 04/09 covers elements not covered in my initial note. SUBJECTIVE: I met with the patient on the evening of 04/09. The patient slept 8-1/2 hours the previous night. [employer], she was lying on the floor in the day room, tearing up magazines, spitting out food, pulled the curtains off the window, unable to redirect. She pockets the food, drinks a lot. Sometimes, able to understand her speech per nursing report. She pulled her left great toenail off last night. She drools excessively. REVIEW OF SYSTEMS: Ambulation impaired, in wheelchair. No CV, , pulmonary, eye, ENT system symptoms on review. Reliability poor. MENTAL STATUS EXAMINATION: Oriented to herself. Insight, judgment, recent and remote memory, attention, concentration, fund of knowledge poor; consistent with her diagnoses. IMPRESSION: Major neurocognitive disorder, Alzheimer, vascular with delusion, depression, behavioral disturbance, intellectual disability, probable bipolar disorder mixed. Rest unchanged. PLAN: Continue Depakote ER 500 mg at bedtime. Check labs level, adjust as clinically indicated. Ativan 1 mg b.i.d., Neurontin, Cogentin, Zyprexa p.r.n., Remeron and Risperdal will be continued unchanged for now. MAN Phil BUNDY MD DR: MARGARITO/carolyn JOB#: [id number] / [id number]
[2019-04-12] MEDS: FAMOTIDINE 20 MG TABLET PO SCH (05:33)
[2019-04-12] MEDS: LEVOTHYROXINE 100 MCG TABLET PO SCH (05:33)
[2019-04-12 06:12] VITALS: BP 119/74
[2019-04-12] MEDS: ASPIRIN 81 MG TAB.CHEW PO SCH (09:02)
[2019-04-12] MEDS: CHLORHEXIDINE 0.12% 15 ML MOUTHWASH. SWSP SCH ×3 (09:02→19:34)
[2019-04-12] MEDS: risperiDONE 0.5 MG TABLET. PO SCH ×3 (09:02→20:14)
[2019-04-12] MEDS: MULTIVITAMIN with MINERAL TABLET. PO SCH (09:02)
[2019-04-12] MEDS: CETIRIZINE HCL 10 MG TABLET PO SCH (09:02)
[2019-04-12] MEDS: BENZTROPINE MESYLATE 0.5 MG TABLET PO SCH ×2 (09:02→19:35)
[2019-04-12] MEDS: FENOFIBRATE NANOCRYSTALLIZED 145 MG TABLET PO SCH (09:02)
[2019-04-12] MEDS: OMEGA-3 FATTY ACIDS/FISH OIL 1,000 MG CAPSULE. PO SCH (09:02)
[2019-04-12] MEDS: POLYETHYLENE GLYCOL 3350 17 GM PACKET. PO SCH (09:02)
[2019-04-12] MEDS: LORazepam 1 MG TABLET PO SCH ×2 (09:04→19:36)
[2019-04-12] MEDS: GABAPENTIN 300 MG CAPSULE. PO SCH ×2 (09:04→19:35)
[2019-04-12] MEDS: MUPIROCIN 2% TOPICAL OINTMENT 22GM TUBE. TP SCH ×2 (09:42→19:35)
[2019-04-12 17:00] VITALS: BP 130/82
[2019-04-12] MEDS: MIRTAZAPINE 7.5 MG TABLET. PO SCH (19:34)
[2019-04-12] MEDS: DIVALPROEX ER 500 MG TAB.ER.24H PO SCH (19:34)
[2019-04-12] MEDS: DIVALPROEX ER 250 MG TAB.ER.24H. PO SCH (19:34)
--- NOTE | 2019-04-12 22:08 | PDOC ---
Exam Note: Zac Note: Please also refer to the separate dictated note~for this date of service dictated separately.~Patient seen individually. Discussed the patient with Nursing staff reviewed the chart.~Reviewed interim history and current functioning. Reviewed vital signs,~Labs/ Radiology~and current medications noted below. Continue current treatment with the changes noted in the dictated addendum note Assessment: Vital Signs/I&O: Vital Signs Date Time Temp Pulse Resp B/P (MAP) Pulse Ox O2 Delivery O2 Flow Rate FiO2 04/12/19 17:00 97.9 54 16 130/82 (98) 100 04/12/19 06:12 Room Air I & O 04/11/19 04/11/19 04/12/19 15:00 23:00 07:00 Intake Total 840 ml 480 ml 240 ml Balance 840 ml 480 ml 240 ml Current Medications: Meds: Current Medications Medications (Trade) Dose Ordered Sig/Rom Route PRN Reason Start Time Stop Time Status Last Admin Dose Admin Risperidone (RisperDAL) 0.5 mg QHS PO 04/12/19 21:00 04/12/19 20:14 I have reviewed the current psychotropics carefully including drug interactions. Risk benefit ratio favors no change other than as noted in my dictated progress note. Diagnosis: Problems: (1) Anxiety disorder (2) Impulse control disorder (3) Psychotic disorder (4) Dementia in Alzheimer's disease with depression (5) Dementia in Alzheimer's disease with delusions (6) Major neurocognitive disorder STACY BUNDY MD Apr 12, 2019 22:08
[2019-04-13] MEDS: LEVOTHYROXINE 100 MCG TABLET PO SCH (05:17)
--- NOTE | 2019-04-13 05:26 | PN ---
DATE: 04/11/2019 PSYCHIATRIC PROGRESS NOTE This late entry 04/11/2019 covers elements not covered in my initial note. SUBJECTIVE: I met with the patient in the evening of 04/11/2019. Overall, patient did well in the morning, but around 3:00 p.m., she had severe outburst, was screaming for Gatorade, agitated, labile, disruptive, banging the doors and this persisted in the evening on the door. I was in a conference room with other staff for a meeting. REVIEW OF SYSTEMS: Ambulation impaired, in wheelchair. No CV, , pulmonary, eye, ENT system symptoms on review. Reliability poor. MENTAL STATUS EXAM: Oriented to herself. Insight, judgment, recent and remote memory, attention, concentration, fund of knowledge poor, consistent with her diagnosis. Further information from the family reveals that the patient had a long history of bipolar disorder and was treated on lithium for about 20 years and no clear reason why it was stopped. Certainly, combination of her presenting symptoms would include both the bipolar disorder and the progressive dementia in addition to her intellectual disability and impulse control problems. IMPRESSION: Unchanged from initial note with the added diagnosis of bipolar disorder, mixed with psychotic features. PLAN: Valproic acid level was subtherapeutic on Depakote ER 500 mg at bedtime with a level of 36 on 04/09/2019. We will increase to Depakote ER 750 mg at bedtime. Check CBC, CMP, valproic acid level in 3 days. Continue Risperdal 0.5 mg b.i.d., Zyprexa p.r.n. Rest unchanged for now. MAN Phil BUNDY MD DR: MARGARITO/carolyn JOB#: [id number] / [id number]
[2019-04-13 06:24] VITALS: BP 96/63
[2019-04-13] MEDS: FAMOTIDINE 20 MG TABLET PO SCH (06:24)
[2019-04-13] MEDS: ASPIRIN 81 MG TAB.CHEW PO SCH (07:37)
[2019-04-13] MEDS: OMEGA-3 FATTY ACIDS/FISH OIL 1,000 MG CAPSULE. PO SCH (07:37)
[2019-04-13] MEDS: BENZTROPINE MESYLATE 0.5 MG TABLET PO SCH ×2 (07:37→19:45)
[2019-04-13] MEDS: MULTIVITAMIN with MINERAL TABLET. PO SCH (07:37)
[2019-04-13] MEDS: POLYETHYLENE GLYCOL 3350 17 GM PACKET. PO SCH (07:37)
[2019-04-13] MEDS: CETIRIZINE HCL 10 MG TABLET PO SCH (07:38)
[2019-04-13] MEDS: FENOFIBRATE NANOCRYSTALLIZED 145 MG TABLET PO SCH (07:38)
[2019-04-13] MEDS: CHLORHEXIDINE 0.12% 15 ML MOUTHWASH. SWSP SCH ×5 (07:38→19:41)
[2019-04-13] MEDS: MUPIROCIN 2% TOPICAL OINTMENT 22GM TUBE. TP SCH ×2 (07:38→19:40)
[2019-04-13] MEDS: LORazepam 1 MG TABLET PO SCH ×2 (08:07→19:47)
[2019-04-13] MEDS: GABAPENTIN 300 MG CAPSULE. PO SCH ×2 (08:07→19:45)
[2019-04-13 17:16] VITALS: BP 116/71
[2019-04-13] MEDS: DIVALPROEX ER 250 MG TAB.ER.24H. PO SCH (19:41)
[2019-04-13] MEDS: DIVALPROEX ER 500 MG TAB.ER.24H PO SCH (19:44)
[2019-04-13] MEDS: MIRTAZAPINE 7.5 MG TABLET. PO SCH (19:45)
[2019-04-13] MEDS: risperiDONE 0.5 MG TABLET. PO SCH (19:45)
--- NOTE | 2019-04-13 21:50 | PDOC ---
Exam Note: Zac Note: Please also refer to the separate dictated note~for this date of service dictated separately.~Patient seen individually. Discussed the patient with Nursing staff reviewed the chart.~Reviewed interim history and current functioning. Reviewed vital signs,~Labs/ Radiology~and current medications noted below. Continue current treatment with the changes noted in the dictated addendum note Assessment: Vital Signs/I&O: Vital Signs Date Time Temp Pulse Resp B/P (MAP) Pulse Ox O2 Delivery O2 Flow Rate FiO2 04/13/19 17:16 97.7 81 12 116/71 (86) 100 04/13/19 06:24 Room Air I & O 04/12/19 04/12/19 04/13/19 15:00 23:00 07:00 Intake Total 1200 ml 840 ml Balance 1200 ml 840 ml Current Medications: I have reviewed the current psychotropics carefully including drug interactions. Risk benefit ratio favors no change other than as noted in my dictated progress note. Diagnosis: Problems: (1) Anxiety disorder (2) Impulse control disorder (3) Psychotic disorder (4) Dementia in Alzheimer's disease with depression (5) Dementia in Alzheimer's disease with delusions (6) Major neurocognitive disorder STACY BUNDY MD Apr 13, 2019 21:50
--- NOTE | 2019-04-14 02:49 | PN ---
DATE: 04/12/2019 PSYCHIATRIC PROGRESS NOTE This late entry, 04/12/2019, covers elements not covered in my initial note. SUBJECTIVE: I met with the patient in the evening. The patient slept 6-1/2 hours previous night. She has been compliant with the medications, grinding her teeth frequently. Labs are due on the . REVIEW OF SYSTEMS: Ambulation impaired, in wheelchair, at times able to walk on her own. No CV, , pulmonary, eye, ENT system symptoms on review. Reliability poor. MENTAL STATUS EXAM: Oriented to herself. Insight, judgment, recent and remote memory, attention, concentration, fund of knowledge poor, consistent with her diagnosis. She wanted me to sit down with her in her room and wanted to talk to me, which she did for quite a while, somewhat disorganized with loose associations at times, but better than before. LABORATORY DATA: Reviewed. IMPRESSION: Bipolar disorder, mixed with psychotic features; intellectual disability; major neurocognitive disorder; Alzheimer with delusion; depression; behavioral disturbance; anxiety disorder, unspecified; impulse control disorder, unspecified. PLAN: Given the abnormal mouth movements and grinding of her teeth and some symptoms of akathisia, we will reduce the Risperdal from 0.5 b.i.d. down to 0.5 mg daily. Continue rest of the psychotropics. Depakote was added, being adjusted to reach therapeutic level. STACY BUNDY MD DR: MARGARITO/carolyn JOB#: [id number] / [id number]
[2019-04-14] MEDS: FAMOTIDINE 20 MG TABLET PO SCH (05:27)
[2019-04-14] MEDS: LEVOTHYROXINE 100 MCG TABLET PO SCH (05:27)
[2019-04-14 06:38] VITALS: BP 118/70
[2019-04-14 07:42] LABS: BASO % 0 % (0-3); EOS % 0 % (0-3); HEMATOCRIT 36.3 % (36.0-47.0); HEMOGLOBIN 11.8 g/dL (12.0-15.5); LYMPH # 1.1 x10^3/uL (1.0-4.8); LYMPH % 23 % (24-48); MEAN CORPUSCULAR HEMOGLOBIN 33 pg (25-35); MEAN CORPUSCULAR HGB CONC 33 g/dL (31-37); MEAN CORPUSCULAR VOLUME 100 fL (79-100); MONO # 0.6 x10^3/uL (0.0-1.1); MONO % 13 % (0-9); NEUT % 64 % (31-73); PLATELET COUNT 322 x10^3/uL (140-400); RED BLOOD COUNT 3.62 x10^6/uL (3.50-5.40); RED CELL DISTRIBUTION WIDTH 14.1 % (11.5-14.5); WHITE BLOOD COUNT 4.7 x10^3/uL (4.0-11.0)
[2019-04-14] MEDS: CHLORHEXIDINE 0.12% 15 ML MOUTHWASH. SWSP SCH ×3 (07:44→20:08)
[2019-04-14] MEDS: LORazepam 1 MG TABLET PO SCH ×2 (07:44→20:19)
[2019-04-14] MEDS: GABAPENTIN 300 MG CAPSULE. PO SCH ×2 (07:44→20:13)
[2019-04-14] MEDS: POLYETHYLENE GLYCOL 3350 17 GM PACKET. PO SCH (07:44)
[2019-04-14] MEDS: OMEGA-3 FATTY ACIDS/FISH OIL 1,000 MG CAPSULE. PO SCH (07:44)
[2019-04-14] MEDS: CETIRIZINE HCL 10 MG TABLET PO SCH (07:45)
[2019-04-14] MEDS: MULTIVITAMIN with MINERAL TABLET. PO SCH (07:45)
[2019-04-14] MEDS: FENOFIBRATE NANOCRYSTALLIZED 145 MG TABLET PO SCH (07:45)
[2019-04-14] MEDS: ASPIRIN 81 MG TAB.CHEW PO SCH (07:45)
[2019-04-14] MEDS: BENZTROPINE MESYLATE 0.5 MG TABLET PO SCH ×2 (07:45→20:09)
[2019-04-14] MEDS: MUPIROCIN 2% TOPICAL OINTMENT 22GM TUBE. TP SCH ×2 (07:46→20:13)
[2019-04-14 07:54] LABS: ALBUMIN 3.3 g/dL (3.4-5.0); ALBUMIN/GLOBULIN RATIO 0.9 (1.0-1.7); ALK PHOS 116 U/L (46-116); ALT (SGPT) 26 U/L (14-59); ANION GAP 8 (6-14); AST (SGOT) 31 U/L (15-37); BLOOD UREA NITROGEN 23 mg/dL (7-20); BUN/CREATININE RATIO 23 (6-20); CALCIUM 9.1 mg/dL (8.5-10.1); CARBON DIOXIDE 31 mmol/L (21-32); CHLORIDE 105 mmol/L (98-107); GFR 56.2; GLUCOSE 91 mg/dL (70-99); POTASSIUM 3.7 mmol/L (3.5-5.1); SODIUM 144 mmol/L (136-145); TOTAL BILIRUBIN 0.3 mg/dL (0.2-1.0)
[2019-04-14 07:55] LABS: VAL ACID 47 mcg/mL (50-100)
[2019-04-14 15:48] VITALS: BP 107/71
[2019-04-14] MEDS: ACETAMINOPHEN 500 MG TABLET PO PRN (16:24)
--- NOTE | 2019-04-14 19:43 | RAD ---
Two-view left knee, two-view left tibia-fibula and three-view left foot dated 04/14/2019. No comparison available. Clinical data indication: Swelling and bruising. Pain. FINDINGS: 2 views of left knee show diffuse soft tissue swelling. Bony alignment is anatomic. No displaced fracture. No acute osseous or articular abnormality. No apparent joint effusion or loose body. 2 views left tibia fibula show normal bony alignment. No displaced fracture. No acute osseous or articular abnormality. No periostitis or bone destruction. 3 views of left foot show normal bony alignment. No displaced fracture. Diffuse soft tissue swelling. Severe hallux valgus deformity. No periostitis or bone destruction. Mild degenerative changes. IMPRESSION: 1. Diffuse soft tissue swelling with no evidence of underlying acute bony abnormality. 2. Hallux valgus deformity at the first MTP joint. Electronically signed by: Bayron Shaw MD (04/14/2019 7:40 PM) [facility]
[2019-04-14] MEDS: risperiDONE 0.5 MG TABLET. PO SCH (20:09)
[2019-04-14] MEDS: MIRTAZAPINE 7.5 MG TABLET. PO SCH (20:09)
[2019-04-14] MEDS: DIVALPROEX ER 500 MG TAB.ER.24H PO SCH (20:10)
--- NOTE | 2019-04-14 21:57 | PDOC ---
Exam Note: Zac Note: Please also refer to the separate dictated note~for this date of service dictated separately.~Patient seen individually. Discussed the patient with Nursing staff reviewed the chart.~Reviewed interim history and current functioning. Reviewed vital signs,~Labs/ Radiology~and current medications noted below. Continue current treatment with the changes noted in the dictated addendum note Assessment: Vital Signs/I&O: Vital Signs Date Time Temp Pulse Resp B/P (MAP) Pulse Ox O2 Delivery O2 Flow Rate FiO2 04/14/19 15:48 97.5 88 20 107/71 (83) 97 04/13/19 06:24 Room Air I & O 04/13/19 04/13/19 04/14/19 15:00 23:00 07:00 Intake Total 840 ml 480 ml 240 ml Balance 840 ml 480 ml 240 ml Labs: Laboratory Tests Test 04/14/19 07:16 White Blood Count 4.7 x10^3/uL (4.0-11.0) Red Blood Count 3.62 x10^6/uL (3.50-5.40) Hemoglobin 11.8 g/dL (12.0-15.5) L Hematocrit 36.3 % (36.0-47.0) Mean Corpuscular Volume 100 fL (79-100) Mean Corpuscular Hemoglobin 33 pg (25-35) Mean Corpuscular Hemoglobin Concent 33 g/dL (31-37) Red Cell Distribution Width 14.1 % (11.5-14.5) Platelet Count 322 x10^3/uL (140-400) Neutrophils (%) (Auto) 64 % (31-73) Lymphocytes (%) (Auto) 23 % (24-48) L Monocytes (%) (Auto) 13 % (0-9) H Eosinophils (%) (Auto) 0 % (0-3) Basophils (%) (Auto) 0 % (0-3) Neutrophils # (Auto) 3.0 x10^3uL (1.8-7.7) Lymphocytes # (Auto) 1.1 x10^3/uL (1.0-4.8) Monocytes # (Auto) 0.6 x10^3/uL (0.0-1.1) Eosinophils # (Auto) 0.0 x10^3/uL (0.0-0.7) Basophils # (Auto) 0.0 x10^3/uL (0.0-0.2) Sodium Level 144 mmol/L (136-145) Potassium Level 3.7 mmol/L (3.5-5.1) Chloride Level 105 mmol/L (98-107) Carbon Dioxide Level 31 mmol/L (21-32) Anion Gap 8 (6-14) Blood Urea Nitrogen 23 mg/dL (7-20) H Creatinine 1.0 mg/dL (0.6-1.0) Estimated GFR (Cockcroft-Gault) 56.2 BUN/Creatinine Ratio 23 (6-20) H Glucose Level 91 mg/dL (70-99) Calcium Level 9.1 mg/dL (8.5-10.1) Total Bilirubin 0.3 mg/dL (0.2-1.0) Aspartate Amino Transferase (AST) 31 U/L (15-37) Alanine Aminotransferase (ALT) 26 U/L (14-59) Alkaline Phosphatase 116 U/L (46-116) Total Protein 7.0 g/dL (6.4-8.2) Albumin 3.3 g/dL (3.4-5.0) L Albumin/Globulin Ratio 0.9 (1.0-1.7) L Valproic Acid Level 47 mcg/mL (50-100) L Valproic Acid Last Dose Date 04/13/19 Valproic Acid Last Dose Time 2100 Current Medications: Meds: Current Medications Medications (Trade) Dose Ordered Sig/Rom Route PRN Reason Start Time Stop Time Status Last Admin Dose Admin Divalproex Sodium (Depakote Er) 1,000 mg QHS PO 04/14/19 21:00 04/14/19 20:10 I have reviewed the current psychotropics carefully including drug interactions. Risk benefit ratio favors no change other than as noted in my dictated progress note. Diagnosis: Problems: (1) Anxiety disorder (2) Impulse control disorder (3) Psychotic disorder (4) Dementia in Alzheimer's disease with depression (5) Dementia in Alzheimer's disease with delusions (6) Major neurocognitive disorder STACY BUNDY MD Apr 14, 2019 21:57
[2019-04-15 05:14] VITALS: BP 101/63
[2019-04-15] MEDS: LEVOTHYROXINE 100 MCG TABLET PO SCH (05:23)
[2019-04-15] MEDS: FAMOTIDINE 20 MG TABLET PO SCH (05:23)
[2019-04-15 07:28] LABS: ALBUMIN 3.1 g/dL (3.4-5.0); ALBUMIN/GLOBULIN RATIO 0.9 (1.0-1.7); CALCIUM 9.4 mg/dL (8.5-10.1); CREATININE 1.1 mg/dL (0.6-1.0); GFR 50.3; POTASSIUM 4.3 mmol/L (3.5-5.1); TOTAL BILIRUBIN 0.3 mg/dL (0.2-1.0); TOTAL PROTEIN 6.6 g/dL (6.4-8.2)
[2019-04-15] MEDS: LORazepam 1 MG TABLET PO SCH ×2 (07:50→19:40)
[2019-04-15] MEDS: ASPIRIN 81 MG TAB.CHEW PO SCH (07:51)
[2019-04-15] MEDS: FENOFIBRATE NANOCRYSTALLIZED 145 MG TABLET PO SCH (07:51)
[2019-04-15] MEDS: BENZTROPINE MESYLATE 0.5 MG TABLET PO SCH ×2 (07:51→19:39)
[2019-04-15] MEDS: OMEGA-3 FATTY ACIDS/FISH OIL 1,000 MG CAPSULE. PO SCH (07:51)
[2019-04-15] MEDS: MULTIVITAMIN with MINERAL TABLET. PO SCH (07:51)
[2019-04-15] MEDS: GABAPENTIN 300 MG CAPSULE. PO SCH ×2 (07:51→19:39)
[2019-04-15] MEDS: CETIRIZINE HCL 10 MG TABLET PO SCH (07:52)
[2019-04-15] MEDS: MUPIROCIN 2% TOPICAL OINTMENT 22GM TUBE. TP SCH ×2 (09:00→19:40)
[2019-04-15] MEDS: POLYETHYLENE GLYCOL 3350 17 GM PACKET. PO SCH (09:00)
[2019-04-15] MEDS: CHLORHEXIDINE 0.12% 15 ML MOUTHWASH. SWSP SCH ×3 (09:00→19:39)
[2019-04-15 16:30] VITALS: BP 133/83
--- NOTE | 2019-04-15 16:41 | RAD ---
Left lower extremity venous Doppler dated 04/15/2019. No comparison available. Clinical data indication: Swelling. FINDINGS: Grayscale, color-flow and spectral waveform analysis performed to include the deep venous system of the left lower extremity. Study is limited due to patient's pain and inability to complete the exam. There is normal compressibility, phasicity and augmentation of flow involving the common femoral vein and greater saphenous vein. The popliteal vein is compressible. There is adequate color flow the popliteal vein and posterior tibial vein. The peroneal vein is not visualized. IMPRESSION: Limited exam. No apparent left lower extremity deep vein thrombosis. Electronically signed by: Bayron Shaw MD (04/15/2019 4:38 PM) [facility]
[2019-04-15] MEDS: DIVALPROEX ER 500 MG TAB.ER.24H PO SCH (19:39)
[2019-04-15] MEDS: MIRTAZAPINE 7.5 MG TABLET. PO SCH (19:39)
[2019-04-15] MEDS: risperiDONE 0.5 MG TABLET. PO SCH (19:40)
--- NOTE | 2019-04-15 21:47 | PDOC ---
Exam Note: Zac Note: Please also refer to the separate dictated note~for this date of service dictated separately.~Patient seen individually. Discussed the patient with Nursing staff reviewed the chart.~Reviewed interim history and current functioning. Reviewed vital signs,~Labs/ Radiology~and current medications noted below. Continue current treatment with the changes noted in the dictated addendum note Assessment: Vital Signs/I&O: Vital Signs Date Time Temp Pulse Resp B/P (MAP) Pulse Ox O2 Delivery O2 Flow Rate FiO2 04/15/19 16:30 98.7 86 18 133/83 (100) 99 04/13/19 06:24 Room Air I & O 04/14/19 04/14/19 04/15/19 14:59 22:59 06:59 Intake Total 1080 ml 720 ml 240 ml Balance 1080 ml 720 ml 240 ml Labs: Laboratory Tests Test 04/15/19 06:35 Sodium Level 143 mmol/L (136-145) Potassium Level 4.3 mmol/L (3.5-5.1) Chloride Level 107 mmol/L (98-107) Carbon Dioxide Level 28 mmol/L (21-32) Anion Gap 8 (6-14) Blood Urea Nitrogen 30 mg/dL (7-20) H Creatinine 1.1 mg/dL (0.6-1.0) H Estimated GFR (Cockcroft-Gault) 50.3 BUN/Creatinine Ratio 27 (6-20) H Glucose Level 94 mg/dL (70-99) Calcium Level 9.4 mg/dL (8.5-10.1) Total Bilirubin 0.3 mg/dL (0.2-1.0) Aspartate Amino Transferase (AST) 28 U/L (15-37) Alanine Aminotransferase (ALT) 23 U/L (14-59) Alkaline Phosphatase 111 U/L (46-116) Total Protein 6.6 g/dL (6.4-8.2) Albumin 3.1 g/dL (3.4-5.0) L Albumin/Globulin Ratio 0.9 (1.0-1.7) L Current Medications: I have reviewed the current psychotropics carefully including drug interactions. Risk benefit ratio favors no change other than as noted in my dictated progress note. Diagnosis: Problems: (1) Anxiety disorder (2) Impulse control disorder (3) Psychotic disorder (4) Dementia in Alzheimer's disease with depression (5) Dementia in Alzheimer's disease with delusions (6) Major neurocognitive disorder STACY BUNDY MD Apr 15, 2019 21:47
--- NOTE | 2019-04-15 22:14 | PN ---
DATE: 04/13/2019 PSYCHIATRIC PROGRESS NOTE This late entry 04/13/2019 covers the elements not covered in my initial note. SUBJECTIVE: I met with the patient in the evening of 04/13/2019. According to NAVEED Rizvi, the patient slept 5-1/2 hours previous night. Previous evening, she got upset because of some situations on the unit, but doing better on 04/13/2019. REVIEW OF SYSTEMS: No CV, , pulmonary, eye, ENT system symptoms on review. I met with her at some length individually in her room. Reliability is poor. MENTAL STATUS EXAM: Oriented to herself. Insight, judgment, recent and remote memory, attention, concentration, fund of knowledge poor, consistent with her diagnoses. IMPRESSION: Bipolar disorder, mixed with psychotic features, intellectual disability, psychotic disorder, unspecified; impulse control disorder, unspecified. Rest unchanged. PLAN: Continue current psychotropics. Depakote has been initiated. Adjust to reach therapeutic level with next set of labs on 04/14/2019 and the Depakote ER had been increased. MAN Phil BUNDY MD DR: MARGARITO/carolyn JOB#: [id number] / [id number]
--- NOTE | 2019-04-15 23:29 | PN ---
DATE: 04/14/2019 PSYCHIATRIC PROGRESS NOTE This late entry 04/14/2019 covers the elements not covered in my initial note. SUBJECTIVE: I met with the patient in the evening and staffed at a treatment team meeting with the entire team in the morning. Reviewed the patient's history, diagnosis, placement and past response to psychotropics. The patient has a long history of bipolar disorder, treated for about 20 years on lithium, which I was not aware of until recently. She is sleeping an average of hours. Appetite is 50-75%, compliant with medications and showers. She put herself on the floor at times, but no injuries noted. She was out on the patio singing quite improved in some respects. She is ambulating better on her own. REVIEW OF SYSTEMS: No CV, , pulmonary, eye, ENT system symptoms on review. Reliability varies. MENTAL STATUS EXAM: Oriented to herself and situation. Speech is coherent, a little pressured at times. Abstraction fair, computation impaired, language function intact, attention span short. Mood and affect somewhat anxious, labile, grandiose, irritable at times, but much improved. Valproic acid level is 47 on current dosage of Depakote ER 750 mg at bedtime. IMPRESSION: Bipolar disorder, mixed with psychotic features, intellectual disability, major neurocognitive disorder, Alzheimer's with delusions, behavioral disturbance. PLAN: Increase Depakote ER to 1000 mg at bedtime. Check CBC, CMP, valproic acid level in 3 days. Continue Ativan 1 mg b.i.d. and we will taper this gradually. Maintain gabapentin, Cogentin, Remeron, Risperdal is 0.5 mg at bedtime, Zyprexa p.r.n. STACY BUNDY MD DR: MARGARITO/carolyn JOB#: [id number] / [id number]
[2019-04-16 05:23] VITALS: BP 107/67
[2019-04-16] MEDS: FAMOTIDINE 20 MG TABLET PO SCH (05:53)
[2019-04-16] MEDS: LEVOTHYROXINE 100 MCG TABLET PO SCH (05:53)
[2019-04-16] MEDS: ASPIRIN 81 MG TAB.CHEW PO SCH (08:14)
[2019-04-16] MEDS: MULTIVITAMIN with MINERAL TABLET. PO SCH (08:14)
[2019-04-16] MEDS: CETIRIZINE HCL 10 MG TABLET PO SCH (08:14)
[2019-04-16] MEDS: POLYETHYLENE GLYCOL 3350 17 GM PACKET. PO SCH (08:14)
[2019-04-16] MEDS: OMEGA-3 FATTY ACIDS/FISH OIL 1,000 MG CAPSULE. PO SCH (08:14)
[2019-04-16] MEDS: GABAPENTIN 300 MG CAPSULE. PO SCH ×2 (08:14→20:41)
[2019-04-16] MEDS: CHLORHEXIDINE 0.12% 15 ML MOUTHWASH. SWSP SCH ×3 (08:14→22:04)
[2019-04-16] MEDS: LORazepam 1 MG TABLET PO SCH ×2 (08:15→20:41)
[2019-04-16] MEDS: FENOFIBRATE NANOCRYSTALLIZED 145 MG TABLET PO SCH (08:15)
[2019-04-16] MEDS: BENZTROPINE MESYLATE 0.5 MG TABLET PO SCH ×2 (08:15→20:42)
[2019-04-16] MEDS: MUPIROCIN 2% TOPICAL OINTMENT 22GM TUBE. TP SCH ×2 (08:16→22:04)
[2019-04-16] MEDS: ACETAMINOPHEN 500 MG TABLET PO PRN (14:42)
[2019-04-16 15:36] VITALS: BP 122/82
[2019-04-16] MEDS: MIRTAZAPINE 7.5 MG TABLET. PO SCH (20:41)
[2019-04-16] MEDS: risperiDONE 0.5 MG TABLET. PO SCH (20:42)
[2019-04-16] MEDS: DIVALPROEX ER 500 MG TAB.ER.24H PO SCH (20:42)
--- NOTE | 2019-04-16 22:20 | PDOC ---
Exam Note: Zac Note: Please also refer to the separate dictated note~for this date of service dictated separately.~Patient seen individually. Discussed the patient with Nursing staff reviewed the chart.~Reviewed interim history and current functioning. Reviewed vital signs,~Labs/ Radiology~and current medications noted below. Continue current treatment with the changes noted in the dictated addendum note Assessment: Vital Signs/I&O: Vital Signs Date Time Temp Pulse Resp B/P (MAP) Pulse Ox O2 Delivery O2 Flow Rate FiO2 04/16/19 15:36 97.6 90 18 122/82 (95) 97 04/13/19 06:24 Room Air I & O 04/15/19 04/15/19 04/16/19 15:00 23:00 07:00 Intake Total 1200 ml 480 ml 240 ml Balance 1200 ml 480 ml 240 ml Current Medications: I have reviewed the current psychotropics carefully including drug interactions. Risk benefit ratio favors no change other than as noted in my dictated progress note. Diagnosis: Problems: (1) Anxiety disorder (2) Impulse control disorder (3) Psychotic disorder (4) Dementia in Alzheimer's disease with depression (5) Dementia in Alzheimer's disease with delusions (6) Major neurocognitive disorder STACY BUNDY MD Apr 16, 2019 22:20
[2019-04-17] MEDS: LEVOTHYROXINE 100 MCG TABLET PO SCH (05:20)
[2019-04-17] MEDS: FAMOTIDINE 20 MG TABLET PO SCH (05:21)
[2019-04-17 06:21] VITALS: BP 123/80
[2019-04-17 07:06] LABS: BASO % 0 % (0-3); EOS % 0 % (0-3); HEMOGLOBIN 10.7 g/dL (12.0-15.5); LYMPH % 27 % (24-48); MEAN CORPUSCULAR HEMOGLOBIN 32 pg (25-35); MEAN CORPUSCULAR HGB CONC 33 g/dL (31-37); MEAN CORPUSCULAR VOLUME 99 fL (79-100); MONO # 0.6 x10^3/uL (0.0-1.1); MONO % 16 % (0-9); NEUT # 2.1 x10^3uL (1.8-7.7); NEUT % 57 % (31-73); PLATELET COUNT 304 x10^3/uL (140-400); RED BLOOD COUNT 3.32 x10^6/uL (3.50-5.40); WHITE BLOOD COUNT 3.8 x10^3/uL (4.0-11.0)
[2019-04-17 07:13] LABS: VAL ACID 51 mcg/mL (50-100)
[2019-04-17] MEDS: MULTIVITAMIN with MINERAL TABLET. PO SCH (08:56)
[2019-04-17] MEDS: CETIRIZINE HCL 10 MG TABLET PO SCH (08:56)
[2019-04-17] MEDS: POLYETHYLENE GLYCOL 3350 17 GM PACKET. PO SCH (08:56)
[2019-04-17] MEDS: ASPIRIN 81 MG TAB.CHEW PO SCH (08:56)
[2019-04-17] MEDS: OMEGA-3 FATTY ACIDS/FISH OIL 1,000 MG CAPSULE. PO SCH (08:56)
[2019-04-17] MEDS: LORazepam 1 MG TABLET PO SCH ×2 (08:56→19:56)
[2019-04-17] MEDS: FENOFIBRATE NANOCRYSTALLIZED 145 MG TABLET PO SCH (08:56)
[2019-04-17] MEDS: GABAPENTIN 300 MG CAPSULE. PO SCH ×2 (08:56→19:57)
[2019-04-17] MEDS: CHLORHEXIDINE 0.12% 15 ML MOUTHWASH. SWSP SCH ×3 (08:56→20:00)
[2019-04-17] MEDS: BENZTROPINE MESYLATE 0.5 MG TABLET PO SCH ×2 (08:57→19:57)
[2019-04-17] MEDS: MUPIROCIN 2% TOPICAL OINTMENT 22GM TUBE. TP SCH ×2 (08:57→20:01)
[2019-04-17 16:10] VITALS: BP 131/76
[2019-04-17] MEDS: DIVALPROEX ER 500 MG TAB.ER.24H PO SCH (19:57)
[2019-04-17] MEDS: MIRTAZAPINE 7.5 MG TABLET. PO SCH (19:57)
[2019-04-17] MEDS: risperiDONE 0.5 MG TABLET. PO SCH (19:59)
--- NOTE | 2019-04-17 21:34 | PDOC ---
Exam Note: Zac Note: Please also refer to the separate dictated note~for this date of service dictated separately.~Patient seen individually. Discussed the patient with Nursing staff reviewed the chart.~Reviewed interim history and current functioning. Reviewed vital signs,~Labs/ Radiology~and current medications noted below. Continue current treatment with the changes noted in the dictated addendum note Assessment: Vital Signs/I&O: Vital Signs Date Time Temp Pulse Resp B/P (MAP) Pulse Ox O2 Delivery O2 Flow Rate FiO2 04/17/19 16:10 97.1 81 20 131/76 (94) 96 04/13/19 06:24 Room Air I & O 04/16/19 04/16/19 04/17/19 15:00 23:00 07:00 Intake Total 840 ml 240 ml Balance 840 ml 240 ml Labs: Laboratory Tests Test 04/17/19 06:53 White Blood Count 3.8 x10^3/uL (4.0-11.0) L Red Blood Count 3.32 x10^6/uL (3.50-5.40) L Hemoglobin 10.7 g/dL (12.0-15.5) L Hematocrit 33.0 % (36.0-47.0) L Mean Corpuscular Volume 99 fL (79-100) Mean Corpuscular Hemoglobin 32 pg (25-35) Mean Corpuscular Hemoglobin Concent 33 g/dL (31-37) Red Cell Distribution Width 14.0 % (11.5-14.5) Platelet Count 304 x10^3/uL (140-400) Neutrophils (%) (Auto) 57 % (31-73) Lymphocytes (%) (Auto) 27 % (24-48) Monocytes (%) (Auto) 16 % (0-9) H Eosinophils (%) (Auto) 0 % (0-3) Basophils (%) (Auto) 0 % (0-3) Neutrophils # (Auto) 2.1 x10^3uL (1.8-7.7) Lymphocytes # (Auto) 1.0 x10^3/uL (1.0-4.8) Monocytes # (Auto) 0.6 x10^3/uL (0.0-1.1) Eosinophils # (Auto) 0.0 x10^3/uL (0.0-0.7) Basophils # (Auto) 0.0 x10^3/uL (0.0-0.2) Valproic Acid Level 51 mcg/mL (50-100) Valproic Acid Last Dose Date 04/15/19 Valproic Acid Last Dose Time 2100 Current Medications: Meds: Current Medications Medications (Trade) Dose Ordered Sig/Rom Route PRN Reason Start Time Stop Time Status Last Admin Dose Admin Risperidone (RisperDAL) 0.75 mg QHS PO 04/17/19 21:00 04/17/19 19:59 I have reviewed the current psychotropics carefully including drug interactions. Risk benefit ratio favors no change other than as noted in my dictated progress note. Diagnosis: Problems: (1) Anxiety disorder (2) Impulse control disorder (3) Psychotic disorder (4) Dementia in Alzheimer's disease with depression (5) Dementia in Alzheimer's disease with delusions (6) Major neurocognitive disorder STACY BUNDY MD Apr 17, 2019 21:34
--- NOTE | 2019-04-18 00:28 | PN ---
DATE: 04/15/2019 PSYCHIATRIC PROGRESS NOTE This late entry 04/15/2019 covers elements not covered in my initial note. SUBJECTIVE: I met with the patient in the evening. Per NAVEED Rizvi patient slept 6-3/4 hours previous night. Ultrasound of the left foot was done for swelling. She has been yelling at times, wanting snacks, repetitive through her walker over and stormed off for little reason to be agitated. Remains quite impulsive. Received Zyprexa p.r.n. REVIEW OF SYSTEMS: Ambulation impaired with walker. No CV, , pulmonary, eye, ENT system symptoms on review, met with her in her room. MENTAL STATUS EXAM: Oriented to herself. Insight, judgment, recent and remote memory, attention, concentration, fund of knowledge poor, consistent with her diagnosis mentioned in my initial note. PLAN: No change from initial note. MAN Phil BUNDY MD DR: MARGARITO/carolyn JOB#: [id number] / [id number]
[2019-04-18 05:39] VITALS: BP 137/65
[2019-04-18] MEDS: LEVOTHYROXINE 100 MCG TABLET PO SCH (06:07)
[2019-04-18] MEDS: FAMOTIDINE 20 MG TABLET PO SCH (06:08)
[2019-04-18] MEDS: MUPIROCIN 2% TOPICAL OINTMENT 22GM TUBE. TP SCH ×2 (07:29→19:44)
[2019-04-18] MEDS: BENZTROPINE MESYLATE 0.5 MG TABLET PO SCH ×2 (07:29→19:36)
[2019-04-18] MEDS: FENOFIBRATE NANOCRYSTALLIZED 145 MG TABLET PO SCH (07:29)
[2019-04-18] MEDS: GABAPENTIN 300 MG CAPSULE. PO SCH ×2 (07:29→19:42)
[2019-04-18] MEDS: CETIRIZINE HCL 10 MG TABLET PO SCH (07:29)
[2019-04-18] MEDS: ASPIRIN 81 MG TAB.CHEW PO SCH (07:29)
[2019-04-18] MEDS: POLYETHYLENE GLYCOL 3350 17 GM PACKET. PO SCH (07:30)
[2019-04-18] MEDS: MULTIVITAMIN with MINERAL TABLET. PO SCH (07:30)
[2019-04-18] MEDS: LORazepam 1 MG TABLET PO SCH ×2 (07:30→19:42)
[2019-04-18] MEDS: OMEGA-3 FATTY ACIDS/FISH OIL 1,000 MG CAPSULE. PO SCH (07:30)
[2019-04-18] MEDS: CHLORHEXIDINE 0.12% 15 ML MOUTHWASH. SWSP SCH ×3 (07:34→19:35)
[2019-04-18 16:07] VITALS: BP 132/80
[2019-04-18] MEDS ORDERED: traZODone 50 MG TABLET. PO PRN (17:00)
[2019-04-18] MEDS: DIVALPROEX ER 500 MG TAB.ER.24H PO SCH (19:36)
[2019-04-18] MEDS: MIRTAZAPINE 7.5 MG TABLET. PO SCH (19:36)
[2019-04-18] MEDS: risperiDONE 0.5 MG TABLET. PO SCH (19:37)
[2019-04-18] MEDS: traZODone 50 MG TABLET. PO SCH (19:42)
--- NOTE | 2019-04-18 21:44 | PDOC ---
Exam Note: Zac Note: Please also refer to the separate dictated note~for this date of service dictated separately.~Patient seen individually. Discussed the patient with Nursing staff reviewed the chart.~Reviewed interim history and current functioning. Reviewed vital signs,~Labs/ Radiology~and current medications noted below. Continue current treatment with the changes noted in the dictated addendum note Assessment: Vital Signs/I&O: Vital Signs Date Time Temp Pulse Resp B/P (MAP) Pulse Ox O2 Delivery O2 Flow Rate FiO2 04/18/19 16:07 98.0 90 20 132/80 (97) 95 04/18/19 05:39 Room Air I & O 04/17/19 04/17/19 04/18/19 15:00 23:00 07:00 Intake Total 600 ml 960 ml Balance 600 ml 960 ml Current Medications: Meds: Current Medications Medications (Trade) Dose Ordered Sig/Rom Route PRN Reason Start Time Stop Time Status Last Admin Dose Admin Trazodone HCl (Desyrel) 50 mg QHS PO 04/18/19 21:00 04/18/19 19:42 I have reviewed the current psychotropics carefully including drug interactions. Risk benefit ratio favors no change other than as noted in my dictated progress note. Diagnosis: Problems: (1) Anxiety disorder (2) Impulse control disorder (3) Psychotic disorder (4) Dementia in Alzheimer's disease with depression (5) Dementia in Alzheimer's disease with delusions (6) Major neurocognitive disorder STACY BUNDY MD Apr 18, 2019 21:44
--- NOTE | 2019-04-19 00:50 | PN ---
DATE: 04/16/2019 PSYCHIATRIC PROGRESS NOTE This late entry 04/16/2019 covers elements not covered in my initial note. SUBJECTIVE: I met with the patient in the evening. The patient slept 7-1/2 hours previous night. She has had significant mood lability, slamming the door, stripped herself naked, had to be placed in an onesie. Appears paranoid, hyperverbal. REVIEW OF SYSTEMS: No CV, , pulmonary, eye, ENT system symptoms on review. Reliability poor. MENTAL STATUS EXAMINATION: Oriented to herself. Insight, judgment, recent and remote memory, attention, concentration, fund of knowledge poor, consistent with her diagnoses. IMPRESSION: Bipolar 1 disorder, mixed with psychotic features, intellectual disability, major neurocognitive disorder, Alzheimer with delusion, depression. Rest unchanged. PLAN: Continue current psychotropics. Increase Risperdal to 0.75 mg at bedtime, Depakote is being adjusted. We will check labs level on 04/17/2019 to reach therapeutic level. STACY BUNDY MD DR: MARGARITO/carolyn JOB#: [id number] / [id number]
--- NOTE | 2019-04-19 03:20 | PN ---
DATE: 04/17/2019 PSYCHIATRIC PROGRESS NOTE This late entry 04/17/2019 covers elements not covered in my initial note. SUBJECTIVE: I met with the patient in the evening. The patient slept 5-1/2 hours previous night, remains intermittently agitated. The increased Risperdal seemed to help with the psychosis. REVIEW OF SYSTEMS: No CV, , pulmonary, eye, ENT system symptoms on review. Reliability poor. She does ambulate with a walker. MENTAL STATUS EXAM: Oriented to herself. Insight, judgment, recent and remote memory, attention, concentration, fund of knowledge poor, consistent with her diagnosis mentioned in my initial note. PLAN: No change from initial note. Valproic acid level therapeutic at 51. MAN Phil BUNDY MD DR: MARGARITO/carolyn JOB#: [id number] / [id number]
[2019-04-19] MEDS: LEVOTHYROXINE 100 MCG TABLET PO SCH (05:29)
[2019-04-19] MEDS: FAMOTIDINE 20 MG TABLET PO SCH (05:30)
[2019-04-19 06:03] VITALS: BP 105/60
[2019-04-19] MEDS: POLYETHYLENE GLYCOL 3350 17 GM PACKET. PO SCH (07:52)
[2019-04-19] MEDS: CHLORHEXIDINE 0.12% 15 ML MOUTHWASH. SWSP SCH ×3 (07:52→19:36)
[2019-04-19] MEDS: CETIRIZINE HCL 10 MG TABLET PO SCH (07:53)
[2019-04-19] MEDS: LORazepam 1 MG TABLET PO SCH ×2 (07:53→19:39)
[2019-04-19] MEDS: BENZTROPINE MESYLATE 0.5 MG TABLET PO SCH ×2 (07:53→19:37)
[2019-04-19] MEDS: OMEGA-3 FATTY ACIDS/FISH OIL 1,000 MG CAPSULE. PO SCH (07:53)
[2019-04-19] MEDS: ASPIRIN 81 MG TAB.CHEW PO SCH (07:53)
[2019-04-19] MEDS: GABAPENTIN 300 MG CAPSULE. PO SCH ×2 (07:53→19:39)
[2019-04-19] MEDS: FENOFIBRATE NANOCRYSTALLIZED 145 MG TABLET PO SCH (07:53)
[2019-04-19] MEDS: MULTIVITAMIN with MINERAL TABLET. PO SCH (07:54)
[2019-04-19] MEDS: MUPIROCIN 2% TOPICAL OINTMENT 22GM TUBE. TP SCH ×2 (07:55→19:41)
[2019-04-19 16:39] VITALS: BP 119/77
[2019-04-19] MEDS: risperiDONE 0.5 MG TABLET. PO SCH (19:36)
[2019-04-19] MEDS: MIRTAZAPINE 7.5 MG TABLET. PO SCH (19:36)
[2019-04-19] MEDS: traZODone 50 MG TABLET. PO SCH (19:36)
[2019-04-19] MEDS: DIVALPROEX ER 500 MG TAB.ER.24H PO SCH (19:37)
--- NOTE | 2019-04-19 22:17 | PDOC ---
Exam Note: Zac Note: Please also refer to the separate dictated note~for this date of service dictated separately.~Patient seen individually. Discussed the patient with Nursing staff reviewed the chart.~Reviewed interim history and current functioning. Reviewed vital signs,~Labs/ Radiology~and current medications noted below. Continue current treatment with the changes noted in the dictated addendum note Assessment: Vital Signs/I&O: Vital Signs Date Time Temp Pulse Resp B/P (MAP) Pulse Ox O2 Delivery O2 Flow Rate FiO2 04/19/19 16:39 97.8 91 20 119/77 (91) 97 04/18/19 05:39 Room Air I & O 04/18/19 04/18/19 04/19/19 15:00 23:00 07:00 Intake Total 960 ml 600 ml 360 ml Balance 960 ml 600 ml 360 ml Current Medications: I have reviewed the current psychotropics carefully including drug interactions. Risk benefit ratio favors no change other than as noted in my dictated progress note. Diagnosis: Problems: (1) Anxiety disorder (2) Impulse control disorder (3) Psychotic disorder (4) Dementia in Alzheimer's disease with depression (5) Dementia in Alzheimer's disease with delusions (6) Major neurocognitive disorder STACY BUNDY MD Apr 19, 2019 22:17
[2019-04-20] MEDS: FAMOTIDINE 20 MG TABLET PO SCH (05:37)
[2019-04-20] MEDS: LEVOTHYROXINE 100 MCG TABLET PO SCH (05:37)
[2019-04-20 05:57] VITALS: BP 115/75
--- NOTE | 2019-04-20 06:30 | PN ---
DATE: 04/18/2019 PSYCHIATRIC PROGRESS NOTE This late entry 04/18/2019 covers the elements not covered in my initial note. SUBJECTIVE: I met with the patient in the evening. Per NAVEED Parry, the patient slept 3-1/4 hours previous night, received p.r.n. bedtime x 2 of the Zyprexa Zydis for mood vacillation agitation. She has been restless, quite obsessed about food and eats excessively, was running after the snack card otherwise cooperative, walker was discontinued. She ambulates on her own slightly unsteady. REVIEW OF SYSTEMS: No CV, , pulmonary, eye, ENT system symptoms on review. Reliability is poor. MENTAL STATUS EXAM: Oriented to herself. Insight, judgment, recent and remote memory, attention, concentration, fund of knowledge poor, consistent with her diagnosis. She is quite obsessive, fixated on questioning me about discharge plans. We addressed this. LABORATORY DATA: Reviewed. IMPRESSION: Unchanged from initial note. Given her ongoing insomnia, we will start trazodone 50 mg at bedtime, may repeat x 1 for insomnia. Rest unchanged for now. STACY BUNDY MD DR: MARGARITO/carolyn JOB#: [id number] / [id number]
[2019-04-20] MEDS: ASPIRIN 81 MG TAB.CHEW PO SCH (07:52)
[2019-04-20] MEDS: MUPIROCIN 2% TOPICAL OINTMENT 22GM TUBE. TP SCH ×2 (07:53→19:53)
[2019-04-20] MEDS: BENZTROPINE MESYLATE 0.5 MG TABLET PO SCH ×2 (07:53→19:49)
[2019-04-20] MEDS: OMEGA-3 FATTY ACIDS/FISH OIL 1,000 MG CAPSULE. PO SCH (07:53)
[2019-04-20] MEDS: CETIRIZINE HCL 10 MG TABLET PO SCH (07:53)
[2019-04-20] MEDS: CHLORHEXIDINE 0.12% 15 ML MOUTHWASH. SWSP SCH ×3 (07:53→19:47)
[2019-04-20] MEDS: MULTIVITAMIN with MINERAL TABLET. PO SCH (07:53)
[2019-04-20] MEDS: FENOFIBRATE NANOCRYSTALLIZED 145 MG TABLET PO SCH (07:53)
[2019-04-20] MEDS: POLYETHYLENE GLYCOL 3350 17 GM PACKET. PO SCH (07:53)
[2019-04-20] MEDS: GABAPENTIN 300 MG CAPSULE. PO SCH ×2 (07:53→19:49)
[2019-04-20] MEDS: LORazepam 1 MG TABLET PO SCH ×2 (07:57→19:53)
[2019-04-20 16:09] VITALS: BP 117/83
[2019-04-20] MEDS: traZODone 50 MG TABLET. PO SCH (19:48)
[2019-04-20] MEDS: risperiDONE 0.5 MG TABLET. PO SCH (19:48)
[2019-04-20] MEDS: MIRTAZAPINE 7.5 MG TABLET. PO SCH (19:48)
[2019-04-20] MEDS: DIVALPROEX ER 500 MG TAB.ER.24H PO SCH (19:48)
--- NOTE | 2019-04-20 21:31 | PDOC ---
Exam Note: Zac Note: Please also refer to the separate dictated note~for this date of service dictated separately.~Patient seen individually. Discussed the patient with Nursing staff reviewed the chart.~Reviewed interim history and current functioning. Reviewed vital signs,~Labs/ Radiology~and current medications noted below. Continue current treatment with the changes noted in the dictated addendum note Assessment: Vital Signs/I&O: Vital Signs Date Time Temp Pulse Resp B/P (MAP) Pulse Ox O2 Delivery O2 Flow Rate FiO2 04/20/19 16:09 97.6 76 18 117/83 (94) 96 04/18/19 05:39 Room Air I & O 04/19/19 04/19/19 04/20/19 14:59 22:59 06:59 Intake Total 960 ml 480 ml 120 ml Balance 960 ml 480 ml 120 ml Current Medications: I have reviewed the current psychotropics carefully including drug interactions. Risk benefit ratio favors no change other than as noted in my dictated progress note. Diagnosis: Problems: (1) Anxiety disorder (2) Impulse control disorder (3) Psychotic disorder (4) Dementia in Alzheimer's disease with depression (5) Dementia in Alzheimer's disease with delusions (6) Major neurocognitive disorder STACY BUNDY MD Apr 20, 2019 21:31
[2019-04-21 05:47] VITALS: BP 105/59
[2019-04-21] MEDS: LEVOTHYROXINE 100 MCG TABLET PO SCH (05:51)
[2019-04-21] MEDS: FAMOTIDINE 20 MG TABLET PO SCH (05:51)
--- NOTE | 2019-04-21 06:40 | PN ---
DATE: 04/19/2019 PSYCHIATRIC PROGRESS NOTE This late entry 04/19/2019 covers elements not covered in my initial note. SUBJECTIVE: I met with the patient evening of 04/19/2019. Per nursing report from NAVEED Menjivar, patient slept 6-3/4 hours previous night. She has had a good day, somewhat obsessive about food, but redirects. Somewhat repetitive. REVIEW OF SYSTEMS: No CV, , pulmonary, eye, ENT system symptoms on review. Reliability varies. MENTAL STATUS EXAM: Oriented to herself. Insight, judgment, recent and remote memory, attention, concentration, fund of knowledge poor, consistent with her diagnosis mentioned in my initial note. PLAN: No change from initial note. We will maintain the Depakote level is therapeutic at 51. Ativan may need to be tapered. Continue Neurontin, Cogentin, Remeron, Risperdal, and trazodone. MAN Phil BUNDY MD DR: MARGARITO/carolyn JOB#: [id number] / [id number]
[2019-04-21] MEDS: FENOFIBRATE NANOCRYSTALLIZED 145 MG TABLET PO SCH (07:19)
[2019-04-21] MEDS: MULTIVITAMIN with MINERAL TABLET. PO SCH (07:20)
[2019-04-21] MEDS: BENZTROPINE MESYLATE 0.5 MG TABLET PO SCH ×2 (07:20→19:32)
[2019-04-21] MEDS: ASPIRIN 81 MG TAB.CHEW PO SCH (07:20)
[2019-04-21] MEDS: GABAPENTIN 300 MG CAPSULE. PO SCH ×2 (07:20→19:38)
[2019-04-21] MEDS: CHLORHEXIDINE 0.12% 15 ML MOUTHWASH. SWSP SCH ×3 (07:20→19:38)
[2019-04-21] MEDS: LORazepam 1 MG TABLET PO SCH ×2 (07:20→19:35)
[2019-04-21] MEDS: OMEGA-3 FATTY ACIDS/FISH OIL 1,000 MG CAPSULE. PO SCH (07:20)
[2019-04-21] MEDS: CETIRIZINE HCL 10 MG TABLET PO SCH (07:20)
[2019-04-21] MEDS: POLYETHYLENE GLYCOL 3350 17 GM PACKET. PO SCH (07:21)
[2019-04-21] MEDS: MUPIROCIN 2% TOPICAL OINTMENT 22GM TUBE. TP SCH ×2 (07:21→19:39)
[2019-04-21] MEDS ORDERED: DIVA500T4 PO (09:49)
[2019-04-21] MEDS ORDERED: GABA-586 PO (09:55)
[2019-04-21] MEDS ORDERED: LORA-254 PO (09:58)
[2019-04-21] MEDS ORDERED: MAG30ORA2 PO (10:01)
[2019-04-21] MEDS ORDERED: MAGN2400 PO (10:02)
[2019-04-21] MEDS ORDERED: METH28OI2 TP (10:04)
[2019-04-21] MEDS ORDERED: MIRT15TA PO (10:07)
[2019-04-21] MEDS ORDERED: MUPI22OI2 TP (10:11)
[2019-04-21] MEDS ORDERED: OLAN5TAB3 PO (10:14)
[2019-04-21] MEDS ORDERED: RISP0.2519 PO (10:15)
[2019-04-21] MEDS ORDERED: TRAZ-120 PO ×2 (10:17→10:18)
[2019-04-21 17:02] VITALS: BP 111/66
[2019-04-21] MEDS: DIVALPROEX ER 500 MG TAB.ER.24H PO SCH (19:32)
[2019-04-21] MEDS: traZODone 50 MG TABLET. PO SCH (19:35)
[2019-04-21] MEDS: risperiDONE 0.5 MG TABLET. PO SCH (19:36)
[2019-04-21] MEDS: MIRTAZAPINE 7.5 MG TABLET. PO SCH (19:36)
--- NOTE | 2019-04-21 21:51 | PDOC ---
Exam Note: Zac Note: Please also refer to the separate dictated note~for this date of service dictated separately.~Patient seen individually. Discussed the patient with Nursing staff reviewed the chart.~Reviewed interim history and current functioning. Reviewed vital signs,~Labs/ Radiology~and current medications noted below. Continue current treatment with the changes noted in the dictated addendum note Assessment: Vital Signs/I&O: Vital Signs Date Time Temp Pulse Resp B/P (MAP) Pulse Ox O2 Delivery O2 Flow Rate FiO2 04/21/19 17:02 97.4 108 18 111/66 (81) 97 04/18/19 05:39 Room Air I & O 04/20/19 04/20/19 04/21/19 15:00 23:00 07:00 Intake Total 960 ml 240 ml 120 ml Balance 960 ml 240 ml 120 ml Current Medications: I have reviewed the current psychotropics carefully including drug interactions. Risk benefit ratio favors no change other than as noted in my dictated progress note. Diagnosis: Problems: (1) Anxiety disorder (2) Impulse control disorder (3) Psychotic disorder (4) Dementia in Alzheimer's disease with depression (5) Dementia in Alzheimer's disease with delusions (6) Major neurocognitive disorder STACY BUNDY MD Apr 21, 2019 21:51
[2019-04-22] MEDS: LEVOTHYROXINE 100 MCG TABLET PO SCH (05:46)
[2019-04-22] MEDS: FAMOTIDINE 20 MG TABLET PO SCH (05:46)
[2019-04-22 06:04] VITALS: BP 135/78
[2019-04-22] MEDS: ASPIRIN 81 MG TAB.CHEW PO SCH (07:48)
[2019-04-22] MEDS: LORazepam 1 MG TABLET PO SCH (07:48)
[2019-04-22] MEDS: POLYETHYLENE GLYCOL 3350 17 GM PACKET. PO SCH (07:49)
[2019-04-22] MEDS: FENOFIBRATE NANOCRYSTALLIZED 145 MG TABLET PO SCH (07:49)
[2019-04-22] MEDS: OMEGA-3 FATTY ACIDS/FISH OIL 1,000 MG CAPSULE. PO SCH (07:49)
[2019-04-22] MEDS: CETIRIZINE HCL 10 MG TABLET PO SCH (07:49)
[2019-04-22] MEDS: MULTIVITAMIN with MINERAL TABLET. PO SCH (07:49)
[2019-04-22] MEDS: GABAPENTIN 300 MG CAPSULE. PO SCH (07:49)
[2019-04-22] MEDS: BENZTROPINE MESYLATE 0.5 MG TABLET PO SCH (07:49)
[2019-04-22] MEDS: CHLORHEXIDINE 0.12% 15 ML MOUTHWASH. SWSP SCH ×2 (08:01→14:00)
[2019-04-22] MEDS: MUPIROCIN 2% TOPICAL OINTMENT 22GM TUBE. TP SCH (08:01)
--- NOTE | 2019-04-22 15:10 | DS ---
DATE OF DISCHARGE: 04/22/2019 This note covers elements not covered in my initial note on 04/22/2019. REASON FOR ADMISSION: Please refer to the admission history for details. Briefly, the patient is a 63-year-old female with a diagnosis of bipolar disorder, intellectual disability, major neurocognitive disorder, Alzheimer, vascular with delusion, behavioral disturbance. She was referred to us from [facility] where she presented from [facility] on account of marked insomnia, significant mood lability, screaming, tearing up the carpet, falling into jackson, slamming doors, hitting, throwing items at staff. She had failed psychiatric outpatient interventions. Behaviors were deemed dangerous, unmanageable, out of control, resulting in this referral. Further review of her history revealed that she had been on lithium for about 20 years for bipolar disorder, prior to it being stopped sometime in the last several months and behaviors have gradually escalated since then. SIGNIFICANT FINDINGS AND CLINICAL COURSE: Following admission, the patient was seen daily individually by myself from a psychiatric standpoint, medical followup with Dr. Berman. Given a diagnosis of bipolar disorder. She was restarted on mood stabilizer with Depakote ER stabilizing at 1000 mg at bedtime with a Valproic acid level therapeutic at 51. The initial marked agitation, aggression, disruptive, yelling, screaming behaviors seemed to gradually subside. She was also continued on Ativan 1 mg b.i.d., but this should be gradually tapered outpatient and she was on gabapentin 300 mg b.i.d., Cogentin 0.5 mg b.i.d., Zyprexa p.r.n., Remeron 7.5 mg at bedtime, Risperdal 0.75 mg at bedtime, trazodone 50 mg at bedtime, may repeat x 1. REVIEW OF SYSTEMS: Prior to discharge on 04/22/2019, no CV, , pulmonary, eye, ENT system symptoms on review. Reliability poor. MENTAL STATUS EXAM: Oriented to herself. Insight, judgment, recent and remote memory, attention, concentration, fund of knowledge poor, consistent with her diagnoses. FINAL DIAGNOSES: Bipolar 1 disorder, mixed with psychotic features; intellectual disability; major neurocognitive disorder; Alzheimer's with delusion; behavioral disturbance; anxiety disorder, unspecified; impulse control disorder, unspecified. Rest unchanged from admission. DISCHARGE MEDICATIONS: Please refer to the MRAD. DISCHARGE INSTRUCTIONS: Outpatient psychiatric and medical followup at the half-way. Time for discharge day management greater than 30 minutes. STACY BUNDY MD DR: MARGARITO/carolyn JOB#: [id number] / [id number]
[2019-04-22 16:26] VITALS: BP 121/77
--- NOTE | 2019-04-22 20:45 | PN ---
DATE: 04/20/2019 PSYCHIATRIC PROGRESS NOTE This late entry 04/20/2019 covers elements not covered in my initial note. SUBJECTIVE: I met with the patient in the evening of 04/20/2019. Per NAVEED Rizvi, patient slept 5-1/4 hours previous night. She has had a good day, ate breakfast and ate her lunch in the room, went to a shower, received Zyprexa at 1:30 better after that. REVIEW OF SYSTEMS: No CV, , pulmonary, eye, ENT system symptoms on review. Reliability poor. MENTAL STATUS EXAM: Oriented to herself. Insight, judgment, recent and remote memory, attention, concentration, fund of knowledge poor, consistent with her diagnosis. Mood is much less labile. LABORATORY DATA: Reviewed. IMPRESSION: Unchanged from initial note. PLAN: No change from initial note. MAN Phil BUNDY MD DR: MARGARITO/carolyn JOB#: [id number] / [id number]
--- NOTE | 2019-04-22 20:46 | PN ---
DATE: 04/21/2019 PSYCHIATRIC PROGRESS NOTE This late entry 04/21/2019 covers the elements not covered in my initial note. SUBJECTIVE: I met with the patient in the evening of 04/21/2019 and staffed at a treatment team meeting with the entire team. The patient slept 6 hours previous night. Appetite 75%, obsessed regarding food, wanting seconds and snacks, but no yelling noted. Not physically aggressive. REVIEW OF SYSTEMS: No CV, , pulmonary, eye, ENT system symptoms on review. MENTAL STATUS EXAM: Oriented to herself. Insight, judgment, recent and remote memory, attention, concentration, fund of knowledge poor, consistent with her diagnosis mentioned in my initial note. PLAN: No change from initial note. MAN Phil BUNDY MD DR: MARGARITO/carolyn JOB#: [id number] / [id number]
--- NOTE | 2019-04-22 21:27 | PDOC ---
Exam Note: Zac Note: Please also refer to the separate dictated note~for this date of service dictated separately.~Patient seen individually. Discussed the patient with Nursing staff reviewed the chart.~Reviewed interim history and current functioning. Reviewed vital signs,~Labs/ Radiology~and current medications noted below. Continue current treatment with the changes noted in the dictated addendum note Assessment: Vital Signs/I&O: Vital Signs Date Time Temp Pulse Resp B/P (MAP) Pulse Ox O2 Delivery O2 Flow Rate FiO2 04/22/19 16:26 97.8 81 18 121/77 (92) 97 04/18/19 05:39 Room Air I & O 04/21/19 04/21/19 04/22/19 15:00 23:00 07:00 Intake Total 1200 ml 360 ml 240 ml Balance 1200 ml 360 ml 240 ml Current Medications: I have reviewed the current psychotropics carefully including drug interactions. Risk benefit ratio favors no change other than as noted in my dictated progress note. Diagnosis: Problems: (1) Anxiety disorder (2) Impulse control disorder (3) Psychotic disorder (4) Dementia in Alzheimer's disease with depression (5) Dementia in Alzheimer's disease with delusions (6) Major neurocognitive disorder STACY BUNDY MD Apr 22, 2019 21:26
--- NOTE | 2019-04-27 01:15 | PN ---
DATE: 04/22/2019 PSYCHIATRIC PROGRESS NOTE This late entry 04/22/2019 covers elements not covered in my initial note. SUBJECTIVE: I met with the patient evening of 04/22/2019. Dictation Ends Here. MAN Phil BUNDY MD DR: Juan Diego JOB#: [id number] / [id number]
== END 2019-04-22 19:02 | disposition home or self-care (01) | DRG 885 ==
LOC: GEROPSY 16:53
PROVIDERS: ADMIT Psychiatry & Neurology Psychiatry; ATTEND Psychiatry & Neurology Psychiatry
DX: F31.64 Bipolar disorder, current episode mixed, severe, with psychotic features (principal); F01.50 Vascular dementia, unspecified severity, without behavioral disturbance, psychotic disturbance, mood disturbance, and anxiety; F71 Moderate intellectual disabilities; G30.9 Alzheimer's disease, unspecified; F41.9 Anxiety disorder, unspecified; F63.9 Impulse disorder, unspecified; F02.80 Dementia in other diseases classified elsewhere, unspecified severity, without behavioral disturbance, psychotic disturbance, mood disturbance, and anxiety; E03.9 Hypothyroidism, unspecified; E78.5 Hyperlipidemia, unspecified; G47.00 Insomnia, unspecified; K21.9 Gastro-esophageal reflux disease without esophagitis; Z79.899 Other long term (current) drug therapy; Z88.1 Allergy status to other antibiotic agents
CPT/HCPCS: 36415; 70450; 73560; 73590; 73630; 80053; 80061; 80164; 81001; 82306; 83036; 83540; 83550; 83735; 84436; 84443; 84480; 85025; 86592; 90471; 90686; 93971; 97110; 97116; 97530; 97535